=== PATIENT | female | born 1980 ===

== ENCOUNTER 2017-10-29 12:14 | Inpatient (IN) | payer MEDICAID, OTHER ==
[2017-10-29 13:22] LABS: BASO % 0.3 % (0.0-2.0); EOS % 0.1 % (0.0-4.0); HEMOGLOBIN 9.4 g/dL (11.0-16.0); LYMPH # 0.7 K/uL (1.0-4.3); LYMPH % 9.2 % (20.0-40.0); MEAN CELL VOLUME 74.8 fL (81.0-99.0); MEAN CORPUSCULAR HEMOGLOBIN 24.8 pg (27.0-31.0); MEAN CORPUSCULAR HGB CONC 33.1 g/dL (33.0-37.0); MONO # 0.4 K/uL (0.0-0.8); MONO % 4.9 % (0.0-10.0); NEUT # 6.9 K/uL (1.8-7.0); NEUT % 85.5 % (50.0-75.0); PLATELET COUNT 194 K/uL (130-400); RED CELL DISTRIBUTION WIDTH 18.1 % (11.5-14.5); WHITE BLOOD COUNT 8.1 K/uL (4.8-10.8)
[2017-10-29] MEDS ORDERED: Iodixanol 320 MG/ML 100 ML BOTTLE IV ONE (13:24)
[2017-10-29 13:28] LABS: ALB/GLOB RATIO 1.4 (1.0-2.1); ALT/SGPT 33 U/L (9-52); AST/SGOT 23 U/L (14-36); BLOOD UREA NITROGEN 10 mg/dL (7-17); GFR NON-AFRICAN AMERICAN > 60
[2017-10-29 13:28] LABS: VENOUS BLOOD GAS BASE EXCESS -3.9 mmol/L (0.0-2.0); VENOUS BLOOD GAS PCO2 29 mmHg (40-60); VENOUS BLOOD GAS PO2 23 mm/Hg (30-55); VENOUS BLOOD PH 7.43 (7.32-7.43)
[2017-10-29] MEDS ORDERED: cefTRIAXone IV 1 gm in Dextros 50 ML IV STA (13:37)
[2017-10-29] MEDS ORDERED: Azithromycin 500 MG in Sodium Chloride 0.9% 250 ML IVPB STA (13:38)
[2017-10-29 13:44] LABS: SQUAMOUS EPITHIAL < 1 /hpf (0-5); URINE BILIRUBIN NEGATIVE (NEGATIVE); URINE BLOOD 1+ (NEGATIVE); URINE CLARITY Hazy (Clear); URINE COLOR Amber (YELLOW); URINE GLUCOSE (UA) NORMAL (Normal); URINE LEUKOCYTE ESTERASE NEG Leu/uL (Negative); URINE PROTEIN 2+ mg/dL (NEGATIVE)
[2017-10-29 13:45] LABS: HCG,QUALITATIVE URINE NEGATIVE (NEGATIVE)
[2017-10-29] MEDS ORDERED: cefTRIAXone 1 gm 1 GM/100 ML BAG IVPB ONE (13:45)
[2017-10-29] MEDS ORDERED: Azithromycin 500mg/250ML NS 500 MG/250 ML BAG IVPB ONE (13:45)
[2017-10-29 13:46] LABS: BANDS 4 % (0-2); LYMPHOCYTE 9 % (20-40); MONOCYTE 5 % (0-10); NEUTROPHIL 82 % (50-75); PLATELET ESTIMATE NORMAL (NORMAL); TOTAL CELLS COUNTED 100
[2017-10-29 13:47] LABS: ANISOCYTOSIS MODERATE; HYPOCHROMIC SLIGHT; POLYCHROMIC SLIGHT
[2017-10-29 13:48] LABS: MICROCYTOSIS SLIGHT; TOXIC GRANULATION PRESENT
--- NOTE | 2017-10-29 14:03 | C.PDOC ---
History Of Present Illness 36 year old female was sent to ED by PMD for further evaluation. Patient states she had an outpatient chest x-ray and was told she may have a pneumonia vs possible tuberculosis. Patient reports intermittent cough for the last 4 months, and a productive cough with blood tinge for the past three days. Patient also reports having shortness of breath, fever, chills for same amount of time. She is visiting from [facility] and arrived 4 months ago. Patient denies chest pain, nausea, vomiting, diarrhea, palpitations, rash, abdominal pain. Time Seen by Provider: 10/29/17 12:30 Chief Complaint (Nursing): Shortness Of Breath History Per: Patient History/Exam Limitations: no limitations Onset/Duration Of Symptoms: Days Current Symptoms Are (Timing): Still Present Exacerbating Factor(s): Coughing Current Respiratory Medications: See Home Med List Severity: Moderate Past Medical History Reviewed: Historical Data, Nursing Documentation, Vital Signs Vital Signs: Last Vital Signs Temp 97.6 F 11/08/17 15:00 Pulse 86 11/08/17 15:00 Resp 20 11/08/17 15:00 BP 100/64 11/08/17 15:00 Pulse Ox 100 11/08/17 17:56 - Medical History PMH: No Chronic Diseases Other Surgeries: plastic surgery/fillers Family History: States: No Known Family Hx - Social History Hx Alcohol Use: No Hx Substance Use: No Review Of Systems Constitutional: Positive for: Fever, Chills Cardiovascular: Negative for: Chest Pain Respiratory: Positive for: Cough (Productive of blood tinge sputum for the past three days. Intermittent cough for the past 4 months. ), Shortness of Breath Gastrointestinal: Negative for: Nausea, Vomiting, Diarrhea Skin: Negative for: Rash Neurological: Negative for: Weakness, Numbness Physical Exam - Physical Exam Appears: Well, Non-toxic, No Acute Distress, Other (speaking in full sentences ) Skin: Warm, Dry Head: Normacephalic Eye(s): bilateral: Normal Inspection Oral Mucosa: Moist Throat: Normal, No Erythema, No Exudate Neck: Supple Cardiovascular: Rhythm Regular Respiratory: Decreased Breath Sounds (RUL), No Accessory Muscle Use, No Rales, Rhonchi (Right upper lobe.), No Wheezing, Other (Coughing intermittently) Gastrointestinal/Abdominal: Normal Exam, Bowel Sounds, Soft, No Tenderness Extremity: Normal ROM, No Pedal Edema, No Calf Tenderness Neurological/Psych: Oriented x3 Gait: Steady ED Course And Treatment - Laboratory Results Result Diagrams: 11/08/17 07:47 11/08/17 07:47 ECG: Interpreted By Me, Viewed By Me (sinus tachycardia 114 bpm, normal axis, no acute ST/T wave changes) ECG Interpretation: Abnormal O2 Sat by Pulse Oximetry: 100 (RA) Pulse Ox Interpretation: Normal - Other Rad CT-chest X-Ray: Interpreted by Me, Viewed By Me Interpretation: FINDINGS: LUNGS: There is a triangular area of consolidation with air bronchogram in the right apex and predominantly involving the posterior segment of the right upper lobe. There are no endobronchial lesions. The remaining right lung and the left lung are predominantly clear. There is mild subsegmental atelectasis in both lower lobes. MEDIASTINUM: The thoracic aorta is normal in caliber. No aneurysm or dissection. Normal sized heart. Main pulmonary artery unremarkable. No vascular congestion. There are enlarged right paratracheal lymph nodes, likely reactive in etiology.. PLEURA: No pleural fluid. No pneumothorax. BONES: No fracture. No destructive lesion. UPPER ABDOMEN: There is mild splenium. OTHER FINDINGS: None. IMPRESSION: Findings are most compatible with right upper lobe pneumonia predominantly involving the apex and posterior segment of the right upper lobe. Follow-up after medical management is recommended to ensure complete resolution. Mild splenomegaly. Chest x-ray X-Ray: Interpreted by Me, Viewed By Me Interpretation: FINDINGS: LUNGS: There is triangular consolidation with air bronchogram in the right upper lobe. The left lung is clear. The right lower lobe is clear. PLEURA: No pneumothorax or pleural fluid seen. CARDIOVASCULAR: Normal. OSSEOUS STRUCTURES: No significant abnormalities. VISUALIZED UPPER ABDOMEN: Normal. OTHER FINDINGS: None. IMPRESSION: Findings are most compatible with right upper lobe pneumonia. Follow-up after medical management is recommended to ensure complete resolution. Progress Note: Blood work, CXR, CTA chest ordered and reviewed. Patient given PO tylenol and Tessalon, IV fluids,and IV rocephin + azithromycin for pneumonia. - Physician Consult Information Physician Contacted: Krystyna Gaona Outcome Of Conversation: Discussed patient with PMD, agrees with admission for right lobar pneumonia, hemoptypsis, dyspnea, fever. Disposition - Disposition Disposition: HOSPITALIZED Disposition Time: 14:42 Condition: STABLE - Clinical Impression Clinical Impression: Lobar pneumonia, Dyspnea, Fever, Hemoptysis - Scribe Statement The provider has reviewed the documentation as recorded by the Mark Steele Ebenezer Provider Attestation: All medical record entries made by the Mark were at my direction and personally dictated by me. I have reviewed the chart and agree that the record accurately reflects my personal performance of the history, physical exam, medical decision making, and the department course for this patient. I have also personally directed, reviewed, and agree with the discharge instructions and disposition. Decision To Admit - Pt Status Changed To: Hospital Disposition Of: Inpatient - Admit Certification Admit to Inpatient:: After my assessment, the patient will require hospitalization for at least two midnights. This is because of the severity of symptoms shown, intensity of services needed, and/or the medical risk in this patient being treated as an outpatient. - InPatient: Physician Admission Certification: I certify that this patient requires 2 or more midnights of care for the following reason:: see notes - . Bed Request Type: Telemetry Admitting Physician: Krystyna Gaona Patient Diagnosis: Lobar pneumonia, Dyspnea, Fever, Hemoptysis
[2017-10-29] MEDS ORDERED: Sodium Chloride 0.9% 1,000 ML IV ONE (14:27)
[2017-10-29] MEDS ORDERED: Sodium Chloride 0.9% 1,000 ML ONE (14:34)
--- NOTE | 2017-10-29 14:34 | CT ---
Date of service: 10/29/2017 PROCEDURE: CT Chest with contrast HISTORY: INFILTRATE VS CAVITY/TB COMPARISON: Plain radiographs from 10/29/2017. TECHNIQUE: Contiguous axial images were obtained through the chest with intravenous contrast enhancement. Sagittal and coronal reconstructions were performed. IV contrast: 100 mL Visipaque Radiation dose (DLP): 170.15 mGy-cm. This CT exam was performed using one or more of the following dose reduction techniques: Automated exposure control, adjustment of the mA and/or kV according to patient size, and/or use of iterative reconstruction technique. FINDINGS: LUNGS: There is a triangular area of consolidation with air bronchogram in the right apex and predominantly involving the posterior segment of the right upper lobe. There are no endobronchial lesions. The remaining right lung and the left lung are predominantly clear. There is mild subsegmental atelectasis in both lower lobes. MEDIASTINUM: The thoracic aorta is normal in caliber. No aneurysm or dissection. Normal sized heart. Main pulmonary artery unremarkable. No vascular congestion. There are enlarged right paratracheal lymph nodes, likely reactive in etiology.. PLEURA: No pleural fluid. No pneumothorax. BONES: No fracture. No destructive lesion. UPPER ABDOMEN: There is mild splenium. OTHER FINDINGS: None. IMPRESSION: Findings are most compatible with right upper lobe pneumonia predominantly involving the apex and posterior segment of the right upper lobe. Follow-up after medical management is recommended to ensure complete resolution. Mild splenomegaly.
--- NOTE | 2017-10-29 14:59 | RAD ---
Date of service: 10/29/2017 PROCEDURE: CHEST RADIOGRAPH, 1 VIEW HISTORY: FEVER, SOB, COUGH COMPARISON: None available. FINDINGS: LUNGS: There is triangular consolidation with air bronchogram in the right upper lobe. The left lung is clear. The right lower lobe is clear. PLEURA: No pneumothorax or pleural fluid seen. CARDIOVASCULAR: Normal. OSSEOUS STRUCTURES: No significant abnormalities. VISUALIZED UPPER ABDOMEN: Normal. OTHER FINDINGS: None. IMPRESSION: Findings are most compatible with right upper lobe pneumonia. Follow-up after medical management is recommended to ensure complete resolution.
[2017-10-29] MEDS ORDERED: Vancomycin 1 GM 1 GM/250 ML BAG IVPB ONE (15:32)
[2017-10-29] MEDS: Vancomycin 1 gm/NS 200 ml 1 GM/200 ML BAG IVPB SCH ×2 (15:35→16:05)
[2017-10-29] MEDS: Sodium Chloride 0.9% 1,000 ML IV SCH (15:35)
[2017-10-29] MEDS: Albuterol-Ipratrop 3 mg / 0.5 (3 ml) UD INH SCH (22:35)
[2017-10-30] MEDS: Albuterol-Ipratrop 3 mg / 0.5 (3 ml) UD INH SCH ×4 (01:17→19:56)
[2017-10-30] MEDS: Vancomycin 1 gm/NS 200 ml 1 GM/200 ML BAG IVPB SCH ×2 (03:56→15:46)
[2017-10-30] MEDS: Sodium Chloride 0.9% 1,000 ML IV SCH ×3 (03:57→20:28)
[2017-10-30] MEDS ORDERED: guaiFENesin DM 200 mg-20 mg/10 ml UD PO ONE (06:11)
[2017-10-30] MEDS: Promethazine/Cod 6.25mg-10mg/5ml Syr UD PO PRN ×2 (11:34→18:22)
--- NOTE | 2017-10-30 12:48 | RAD ---
Date of service: 10/30/2017 HISTORY: cap COMPARISON: 10/29/2017 FINDINGS: LUNGS: The lungs are well inflated. There is redemonstration of triangular consolidation in the right upper lobe limited by the fissure. There is also air bronchogram. PLEURA: No significant pleural effusion identified, no pneumothorax apparent. CARDIOVASCULAR: Normal. OSSEOUS STRUCTURES: No significant abnormalities. VISUALIZED UPPER ABDOMEN: Normal. OTHER FINDINGS: None. IMPRESSION: No change in right upper lobe pneumonia.
[2017-10-30] MEDS: Piperacillin/Tazobact 3.375 GM in Sodium Chloride 100 ML IVPB SCH ×3 (13:43→23:17)
[2017-10-30 20:16] LABS: ALB/GLOB RATIO 1.2 (1.0-2.1); ALBUMIN 3.2 g/dL (3.5-5.0); ALT/SGPT 28 U/L (9-52); AST/SGOT 18 U/L (14-36); BLOOD UREA NITROGEN 10 mg/dL (7-17); CALCIUM 8.4 mg/dl (8.6-10.4); GFR NON-AFRICAN AMERICAN > 60
[2017-10-30 20:36] LABS: BASO % 0.3 % (0.0-2.0); EOS # 0.1 K/uL (0.0-0.7); EOS % 2.2 % (0.0-4.0); HEMOGLOBIN 8.6 g/dL (11.0-16.0); LYMPH # 0.8 K/uL (1.0-4.3); MEAN CELL VOLUME 75.4 fL (81.0-99.0); MEAN CORPUSCULAR HEMOGLOBIN 24.1 pg (27.0-31.0); MEAN CORPUSCULAR HGB CONC 31.9 g/dL (33.0-37.0); MEAN PLATELET VOLUME 6.7 fL (7.2-11.7); MONO # 0.3 K/uL (0.0-0.8); MONO % 6.2 % (0.0-10.0); NEUT # 3.7 K/uL (1.8-7.0); NEUT % 74.3 % (50.0-75.0); RBC 3.59 Mil/uL (3.80-5.20); RED CELL DISTRIBUTION WIDTH 18.3 % (11.5-14.5); WHITE BLOOD COUNT 4.9 K/uL (4.8-10.8)
[2017-10-30] MEDS ORDERED: Oxycodone/Acetaminophen 5/325 mg Tab PO ONE (23:00)
[2017-10-31] MEDS: Sodium Chloride 0.9% 1,000 ML IV SCH ×2 (00:01→06:29)
[2017-10-31] MEDS: Albuterol-Ipratrop 3 mg / 0.5 (3 ml) UD INH SCH ×4 (01:45→19:37)
[2017-10-31] MEDS: Promethazine/Cod 6.25mg-10mg/5ml Syr UD PO PRN ×4 (03:07→22:55)
[2017-10-31] MEDS: Vancomycin 1 gm/NS 200 ml 1 GM/200 ML BAG IVPB SCH ×2 (03:08→16:45)
[2017-10-31] MEDS: Piperacillin/Tazobact 3.375 GM in Sodium Chloride 100 ML IVPB SCH ×4 (05:06→23:53)
[2017-10-31] MEDS ORDERED: Oxycodone/Acetaminophen 5/325 mg Tab PO ONE (10:45)
--- NOTE | 2017-10-31 11:05 | CARD ---
APPROVED REPORT Date of service: 10/29/2017 EKG Measurement Heart [id number] <Conclusion> Sinus tachycardia Otherwise normal ECG
[2017-10-31 14:11] LABS: BASO % 0.7 % (0.0-2.0); EOS # 0.2 K/uL (0.0-0.7); EOS % 4.7 % (0.0-4.0); HEMOGLOBIN 9.4 g/dL (11.0-16.0); LYMPH # 0.8 K/uL (1.0-4.3); LYMPH % 23.1 % (20.0-40.0); MEAN CELL VOLUME 74.4 fL (81.0-99.0); MEAN CORPUSCULAR HEMOGLOBIN 24.4 pg (27.0-31.0); MEAN CORPUSCULAR HGB CONC 32.8 g/dL (33.0-37.0); MEAN PLATELET VOLUME 6.9 fL (7.2-11.7); MONO # 0.2 K/uL (0.0-0.8); NEUT # 2.1 K/uL (1.8-7.0); NEUT % 64.5 % (50.0-75.0); RBC 3.85 Mil/uL (3.80-5.20); RED CELL DISTRIBUTION WIDTH 17.9 % (11.5-14.5); WHITE BLOOD COUNT 3.3 K/uL (4.8-10.8)
[2017-10-31 14:42] LABS: IRON 23 ug/dL (37-170)
[2017-10-31 14:46] LABS: ALB/GLOB RATIO 1.2 (1.0-2.1); ALBUMIN 3.3 g/dL (3.5-5.0); ALT/SGPT 44 U/L (9-52); AST/SGOT 35 U/L (14-36); BLOOD UREA NITROGEN 7 mg/dL (7-17); CALCIUM 8.6 mg/dl (8.6-10.4); GFR NON-AFRICAN AMERICAN > 60
[2017-10-31 14:52] LABS: % IRON SATURATION 8 (20-55); TOTAL IRON BINDING CAPACITY 284 ug/dL (250-450)
[2017-10-31] MEDS ORDERED: Potassium Chloride 20 mEq ER Tab PO ONE (16:00)
[2017-10-31] MEDS: Oxycodone/Acetaminophen 5/325 mg Tab PO PRN (21:20)
[2017-11-01] MEDS: Albuterol-Ipratrop 3 mg / 0.5 (3 ml) UD INH SCH ×4 (01:19→21:02)
[2017-11-01] MEDS: Vancomycin 1 gm/NS 200 ml 1 GM/200 ML BAG IVPB SCH ×2 (05:30→16:18)
[2017-11-01] MEDS: Piperacillin/Tazobact 3.375 GM in Sodium Chloride 100 ML IVPB SCH ×4 (06:05→23:46)
[2017-11-01] MEDS: Promethazine/Cod 6.25mg-10mg/5ml Syr UD PO PRN ×2 (09:28→21:18)
--- NOTE | 2017-11-01 09:47 | RAD ---
Date of service: 11/01/2017 HISTORY: Pneumonia. COMPARISON: No prior. TECHNIQUE: Chest PA and lateral FINDINGS: LUNGS: Stable right upper lobe infiltrate with volume loss. PLEURA: No significant pleural effusion identified. No pneumothorax apparent. CARDIOVASCULAR: Normal. OSSEOUS STRUCTURES: No significant abnormalities. VISUALIZED UPPER ABDOMEN: Normal. OTHER FINDINGS: None. IMPRESSION: Stable right upper lobe pneumonia.
--- NOTE | 2017-11-01 12:34 | CP.PCM.CON ---
History of Present Illness - History of Present Illness History of Present Illness: 36 year old female was sent to ED by PCP for further evaluation. Patient states she had an outpatient chest x-ray and was told she may have a pneumonia, or possible tuberculosis. Patient reports intermittent cough for the last 4 months, and a productive cough with blood tinge for the past three days. Patient also reports having tesha rtness of breath, fever, and chills. Patient states she is visiting from [facility] and arrived 4 months ago. Denies chest pain, nausea, vomiting, diarrhea, numbness, weakness. no recent travel came from [facility] in June 2017 Review of Systems - Review of Systems Systems not reviewed;Unavailable: Language Barrier All systems: reviewed and no additional remarkable complaints except - Constitutional Constitutional: As Per HPI - EENT Eyes: absent: As Per HPI, Blind Spots, Blurred Vision, Change in Vision, Decreased Night Vision, Diplopia, Discharge, Dry Eye, Exophthalmos, Floaters, Irritation, Itchy Eyes, Loss of Peripheral Vision, Pain, Photophobia, Requires Corrective Lenses, Sees Flashes, Spots in Vision, Tunnel Vision, Other Visual Disturbances, Loss of Vision, Other Ears: absent: As Per HPI, Decreased Hearing, Ear Discharge, Ear Pain, Tinnitus, Abnormal Hearing, Disequilibrium, Dizziness, Other Nose/Mouth/Throat: absent: As Per HPI, Epistaxis, Nasal Congestion, Nasal Discharge, Nasal Obstruction, Nasal Trauma, Nose Pain, Post Nasal Drip, Sinus Pain, Sinus Pressure, Bleeding Gums, Change in Voice, Dental Pain, Dry Mouth, Dysphagia, Halitosis, Hoarsness, Lip Swelling, Mouth Lesions, Mouth Pain, Odynophagia, Sore Throat, Throat Swelling, Tongue Swelling, Facial Pain, Neck Pain, Neck Mass, Other - Breasts Breasts: absent: As Per HPI, Change in Shape, Mass, Pain, Nipple Discharge, Nipple Inversion, Skin Changes, Swelling, Other - Cardiovascular Cardiovascular: absent: As Per HPI, Acrocyanosis, Chest Pain, Chest Pain at Rest, Chest Pain with Activity, Claudication, Diaphoresis, Dyspnea, Dyspnea on Exertion, Edema, Irregular Heart Rhythm, Pain Radiating to Arm/Neck/Jaw, Leg Edema, Leg Ulcers, Lightheadedness, Orthopnea, Palpitations, Paroxysmal Nocturnal Dyspnea, Pedal Edema, Radiating Pain, Rapid Heart Rate, Slow Heart Rate, Syncope, Other - Respiratory Respiratory: As Per HPI, Cough, Hemoptysis - Gastrointestinal Gastrointestinal: absent: As Per HPI, Abdominal Pain, Belching, Bloating, Change in Bowel Habits, Change in Stool Character, Coffee Ground Emesis, Constipation, Cramping, Diarrhea, Dyspepsia, Dysphagia, Early Satiety, Excessive Flatus, Fecal Incontinence, Heartburn, Hematemesis, Hematochezia, Loose Stools, Melena, Nausea, Odynophagia, Temesmus, Vomiting, Other - Genitourinary Genitourinary: absent: As Per HPI, Change in Urinary Stream, Difficulty Urinating, Dysuria, Flank Pain, Hematuria, Pyuria, Nocturia, Urinary Incontinence, Urinary Frequency, Urinary Hesitance, Urinary Urgency, Voiding Freq/Small Amts, Freq UTI, Hx Renal/Bladder Calculi, Hx /Renal Surgery, Bladder Distension, Other - Reproductive: Female Reproductive:Female: absent: As Per HPI, Amenorrhea, Amenorrhea/ Control, Currently Menstual, Cycle <21 Days, Cycle >35 Days, Cycle Variable, Menses 1-7 Days, Menses >/= 8 Days, Menses Variable, Cycle > 4 Weeks Between, No Menses for 6 Months, Heavy Menses, Light Menses, Normal Menses, Spotting Between Cycles, S/P Hysterectomy, Menopausal, Post Menopausal, Premenarche, Abnormal Vaginal Bleeding, Dysmenorrhea, Dyspareunia, Genital Lesions, Genital Pruritis, Pelvic Pain, Prolapse Symptoms, Sexual Dysfunction, Vaginal Discharge, Vaginal Dryness, Vaginal Odor, Vaginal Pruritis, Other - Menstruation Menstruation: absent: As Per HPI, Amenorrhea, Amenorrhea/ Control, Currently Menstual, Cycle <21 Days, Cycle >35 Days, Cycle Variable, Menses 1-7 Days, Menses >/= 8 Days, Menses Variable, Cycle > 4 Weeks Between, No Menses for 6 Months, Heavy Menses, Light Menses, Normal Menses, Spotting Between Cycles, S/P Hysterectomy, Menopausal, Post Menopausal, Premenarche, Abnormal Vaginal Bleeding, Dysmenorrhea, Other - Musculoskeletal Musculoskeletal: absent: As Per HPI, Abnormal Gait, Arthralgias, Atrophy, Back Pain, Deformity, Joint Swelling, Limited Range of Motion, Loss of Height, Muscle Cramps, Muscle Weakness, Myalgias, Neck Pain, Numbness, Radiating Pain into Limb, Stiffness, Tingling, Other - Integumentary Integumentary: absent: As Per HPI, Acne, Alopecia, Bleeding Lesions, Change in Hair, Change in Nails, Change in Pigmentation, Changing Lesions, Dry Skin, Erythema, Furuncle, Hirsutism, Lesions, New Lesions, Non-Healing Lesions, Photosensitivity, Pruritus, Rash, Skin Pain, Skin Ulcer, Sores, Striae, Swelling, Unusual Bruising, Wounds, Jaundice, Other - Neurological Neurological: absent: As Per HPI, Abnormal Gait, Abnormal Hearing, Abnormal Movements, Abnormal Speech, Behavioral Changes, Burning Sensations, Confusion, Convulsions, Disequilibrium, Dizziness, Numbness, Focal Weakness, Frequent Fal ls, Headaches, Lack of Coordination, Loss of Vision, Memory Loss, Paresthesias, Radicular Pain, Restless Legs, Sensory Deficit, Syncope, Tingling, Tremor, Vertigo, Weakness, Other Visual Disturbances, Other - Psychiatric Psychiatric: absent: As Per HPI, Abnormal Sleep Pattern, Anhedonia, Anxiety, Auditory Hallucinations, Behavioral Changes, Change in Appetite, Change in Libido, Confusion, Depression, Difficulty Concentrating, Hallucinations, Homicidal Ideation, Hopelessness, Irritability, Memory Loss, Mood Swings, Panic Attacks, Paranoia, Suicidal Ideation, Visual Hallucinations, Tactile Hallucinations, Other - Endocrine Endocrine: absent: As Per HPI, Change in Body Appearance, Change in Libido, Cold Intolorance, Deepening of Voice, Excessive Sweating, Fatigue, Flushing, Heat Intolorance, Increase in Ring/Shoe/Hat Size, Palpitations, Polydipsia, Polyphagia, Polyuria, Other - Hematologic/Lymphatic Hematologic: absent: As Per HPI, Easy Bleeding, Easy Bruising, Lymphadenopathy, Other Past Patient History - Past Medical History & Family History Past Medical History?: Yes - Past Social History Smoking Status: Never Smoked - CARDIAC Hx Cardiac Disorders: No - PULMONARY Hx Respiratory Disorders: Yes Hx Asthma: Yes - NEUROLOGICAL Hx Neurological Disorder: No - HEENT Hx HEENT Problems: No - RENAL Hx Chronic Kidney Disease: No - ENDOCRINE/METABOLIC Hx Endocrine Disorders: No - HEMATOLOGICAL/ONCOLOGICAL Hx Blood Disorders: No - INTEGUMENTARY Hx Dermatological Problems: No - MUSCULOSKELETAL/RHEUMATOLOGICAL Hx Musculoskeletal Disorders: No Hx Falls: No - GASTROINTESTINAL Hx Gastrointestinal Disorders: No - GENITOURINARY/GYNECOLOGICAL Hx Genitourinary Disorders: No - PSYCHIATRIC Hx Psychophysiologic Disorder: No Hx Substance Use: No - SURGICAL HISTORY Hx Surgeries: No - ANESTHESIA Hx Anesthesia: No Hx Anesthesia Reactions: No Hx Malignant Hyperthermia: No Has any member of the family had a problem w/ anesthesia?: No Meds Allergies/Adverse Reactions: Allergies Allergy/AdvReac Type Severity Reaction Status Date / Time No Known Allergies Allergy Verified 10/29/17 13:18 - Medications Medications: Current Medications Albuterol/Ipratropium (Duoneb 3 Mg/0.5 Mg (3 Ml) Ud) 3 ml INH RQ6 LORRI Last Admin: 11/01/17 01:19 Dose: 3 ml Famotidine (Pepcid) 20 mg PO DAILY LORRI Last Admin: 11/01/17 09:36 Dose: 20 mg Gabapentin (Neurontin) 100 mg PO BID LORRI Last Admin: 11/01/17 09:31 Dose: 100 mg Vancomycin/Sodium Chloride (Vancomycin 1 Gm/Ns 200 Ml) 1 gm in 200 mls @ 13 3.333 mls/hr IVPB Q12H LORRI; Protocol Stop: 11/03/17 16:01 Last Admin: 11/01/17 05:30 Dose: 133.333 mls/hr Piperacillin Sod/Tazobactam (Sod 3.375 gm/ Sodium Chloride) 100 mls @ 200 mls/hr IVPB Q6H LORRI; Protocol Last Admin: 11/01/17 06:05 Dose: 200 mls/hr Oxycodone/Acetaminophen (Percocet 5/325 Mg Tab) 1 tab PO Q6H PRN PRN Reason: Pain, moderate (4-7) Stop: 11/03/17 18:21 Last Admin: 10/31/17 21:20 Dose: 1 tab Promethazine HCl/Codeine (Phenergan/Codeine Oral Syrup) 5 ml PO Q6H PRN PRN Reason: Cough Last Admin: 11/01/17 09:28 Dose: 5 ml Physical Exam - Constitutional Appears: Non-toxic, No Acute Distress, Chronically Ill - Head Exam Head Exam: NORMOCEPHALIC - Eye Exam Eye Exam: PERRL. absent: Scleral icterus - ENT Exam ENT Exam: Mucous Membranes Dry, Normal External Ear Exam - Neck Exam Neck exam: Negative for: Lymphadenopathy - Respiratory Exam Respiratory Exam: Decreased Breath Sounds, Clear to Auscultation Bilateral - Cardiovascular Exam Cardiovascular Exam: REGULAR RHYTHM, +S1, +S2 - GI/Abdominal Exam GI & Abdominal Exam: Diminished Bowel Sounds, Soft. absent: Tenderness - Rectal Exam Rectal Exam: Deferred - Exam Exam: NORMAL INSPECTION - Extremities Exam Extremities exam: Positive for: pedal pulses present. Negative for: calf tenderness, pedal edema - Back Exam Back exam: absent: CVA tenderness (L), CVA tenderness (R) - Neurological Exam Neurological exam: Alert, CN II-XII Intact, Oriented x3, Reflexes Normal - Psychiatric Exam Psychiatric exam: Normal Mood - Skin Skin Exam: Dry Results - Vital Signs Recent Vital Signs: Last Vital Signs Temp 98.6 F 11/01/17 07:00 Pulse 85 11/01/17 07:00 Resp 18 11/01/17 07:00 BP 101/61 11/01/17 07:00 Pulse Ox 100 11/01/17 07:00 - Labs Result Diagrams: 10/31/17 14:06 10/31/17 14:06 Labs: Laboratory Results - last 24 hr 10/31/17 10/31/17 10/31/17 14:06 14:06 14:06 WBC 3.3 L RBC 3.85 Hgb 9.4 L Hct 28.7 L MCV 74.4 L MCH 24.4 L MCHC 32.8 L RDW 17.9 H Plt Count 217 MPV 6.9 L Neut % (Auto) 64.5 Lymph % (Auto) 23.1 Lane % (Auto) 7.0 Eos % (Auto) 4.7 H Baso % (Auto) 0.7 Neut # (Auto) 2.1 Lymph # (Auto) 0.[address] # (Auto) 0.2 Eos # (Auto) 0.2 Baso # (Auto) 0.0 Sodium 142 Potassium 3.5 L Chloride 109 H Carbon Dioxide 18 L Anion Gap 19 BUN 7 Creatinine 0.6 L Est GFR ( Amer) > 60 Est GFR (Non-Af Amer) > 60 Random Glucose 111 H Calcium 8.6 Phosphorus 3.3 Magnesium 1.9 Iron TIBC % Saturation Ferritin 323.0 Total Bilirubin 0.5 AST 35 ALT 44 Alkaline Phosphatase 167 H Total Protein 6.2 L Albumin 3.3 L Globulin 2.9 Albumin/Globulin Ratio 1.2 HIV 1&2 Antibody Screen Negative 10/31/17 14:29 WBC RBC Hgb Hct MCV MCH MCHC RDW Plt Count MPV Neut % (Auto) Lymph % (Auto) Lane % (Auto) Eos % (Auto) Baso % (Auto) Neut # (Auto) Lymph # (Auto) Lane # (Auto) Eos # (Auto) Baso # (Auto) Sodium Potassium Chloride Carbon Dioxide Anion Gap BUN Creatinine Est GFR ( Amer) Est GFR (Non-Af Amer) Random Glucose Calcium Phosphorus Magnesium Iron 23 L TIBC 284 % Saturation 8 L Ferritin Total Bilirubin AST ALT Alkaline Phosphatase Total Protein Albumin Globulin Albumin/Globulin Ratio HIV 1&2 Antibody Screen Assessment & Plan (1) Pneumonia Status: Acute - Assessment and Plan (Free Text) Plan: RUL pneumonia with bacteremia- r/o endocarditis, TB appears less likely agree with isolation IV antibiotics
--- NOTE | 2017-11-01 12:53 | NM ---
Date of service: 10/31/2017 PROCEDURE: Ceretec labeled white blood cell study HISTORY: sepsis COMPARISON: November 01, 2017. Two-view chest documenting right upper lobe infiltrate TECHNIQUE: 15.1 mCi technetium 99 M Ceretec labeled white blood cells administered intravenously. Imaging performed per institutional protocol at 2 and 24 hr. FINDINGS: Is expected uptake in the liver and spleen. Qualitatively, the spleen appears enlarged. No abnormal focal accumulation of radionuclide. IMPRESSION: Negative Ceretec labeled white blood cell study.
[2017-11-01] MEDS: Oxycodone/Acetaminophen 5/325 mg Tab PO PRN ×2 (16:17→21:22)
[2017-11-01 20:47] LABS: IMMUNOGLOBULIN G 403.5 mg/dL (700.0-1600.0); IMMUNOGLOBULIN M 72.4 mg/dL (40.0-230.0)
[2017-11-01 20:50] LABS: IMMUNOGLOBULIN A < 40.0 mg/dL (70.0-400.0)
--- NOTE | 2017-11-01 22:05 | CP.PCM.HP ---
History of Present Illness - History of Present Illness History of Present Illness: Chief complaint: Worsening cough HPI: 36-year-old female with a history of recurrent ear infection, and a chronic cough came to the office a week ago, at the time patient was complaining of cough. Patient did not have any fever in the beginning, but she was having wheezing upon examination in my office on 09/27/2017. During that examination I advised the patient for Keflex, Ciprodex, and also inhaled corticosteroids. But over the one week, she did not have any improvement. She came to my office. And I advised her to have x-ray of the chest, which was showing worsening infiltrative changes in the right upper lung, and I advised the patient to go to the emergency room immediately. In the ER patient having worsening cough, cough associated with a thick yellow mucus, also having some blood in the mucus noted. Patient was also having fever and chills. She was having poor appetite, and also some weight loss noted. She did not have any headache. No nausea noted. No vomiting noted. No diarrhea. No skin rash Past medical history none except ear infection Surgical history aesthetic surgery, both gluteal area fillers Family history father mother healthy, siblings 2 brothers Social history: Occasional alcohol denies smoking drinks coffee no exercise current medications none Review of system: doing well, no sinusitis, no headache.Left ear discharge and pain noted. Complaining of minimal soreness of throat. Cough and wheezing noted, chest tightness occasionally noted.Denies any shortness of breath. All exertional dyspnea exertional shortness of breath On examination: Vital signs stable. Patient has a vaccine that idea Left ear discharge noted, pus discharge noted. Lungs bilateral wheezing noted.Expiratory wheezing noted Regular heart sound.No eczema Patient had x-ray of the chest, also CAT scan of the chest showing evidence of right upper lung infiltration, with the air bronchogram. Mild hilar debora enlargement noted Assessment: Patient is a 36-year-old female with a history of recurrent ear infection, now admitted with the severe worsening cough, fever, chills. Evidence of acute pneumonia, most likely community-acquired. Right upper lung pneumonia, underlying tuberculosis cannot be ruled out Also possible sepsis. I spoke to the patient as well as patient's family. She needs intravenous antibiotic, to cover possibly of gram-positive cocci, will add vancomycin, also Zosyn. DVT and GI prophylaxis. Evaluation for tuberculosis. Airborne isolation. Family and the patient understands. Further workup as needed. And will follow-up the patient Present on Admission - Present on Admission Any Indicators Present on Admission: No History of DVT/PE: No History of Uncontrolled Diabetes: No Urinary Catheter: No Decubitus Ulcer Present: No Past Patient History - Past Medical History & Family History Past Medical History?: Yes - Past Social History Smoking Status: Never Smoked - CARDIAC Hx Cardiac Disorders: No - PULMONARY Hx Respiratory Disorders: Yes Hx Asthma: Yes - NEUROLOGICAL Hx Neurological Disorder: No - HEENT Hx HEENT Problems: No - RENAL Hx Chronic Kidney Disease: No - ENDOCRINE/METABOLIC Hx Endocrine Disorders: No - HEMATOLOGICAL/ONCOLOGICAL Hx Blood Disorders: No - INTEGUMENTARY Hx Dermatological Problems: No - MUSCULOSKELETAL/RHEUMATOLOGICAL Hx Musculoskeletal Disorders: No Hx Falls: No - GASTROINTESTINAL Hx Gastrointestinal Disorders: No - GENITOURINARY/GYNECOLOGICAL Hx Genitourinary Disorders: No - PSYCHIATRIC Hx Psychophysiologic Disorder: No Hx Substance Use: No - SURGICAL HISTORY Hx Surgeries: No - ANESTHESIA Hx Anesthesia: No Hx Anesthesia Reactions: No Hx Malignant Hyperthermia: No Has any member of the family had a problem w/ anesthesia?: No Meds Allergies/Adverse Reactions: Allergies Allergy/AdvReac Type Severity Reaction Status Date / Time No Known Allergies Allergy Verified 10/29/17 13:18 Results - Vital Signs Recent Vital Signs: Last Vital Signs Temp 98.3 F 11/01/17 17:35 Pulse 96 H 11/01/17 17:35 Resp 20 11/01/17 17:35 BP 98/58 L 11/01/17 17:35 Pulse Ox 98 11/01/17 17:35 - Labs Result Diagrams: 10/31/17 14:06 10/31/17 14:06 Labs: Laboratory Results - last 24 hr 10/29/17 11/01/17 11/01/17 15:15 20:23 20:23 ESR 88 H C-React Prot High Sens Stool Occult Blood Negative IgG IgA IgM Mycoplasma pneumon IgG <=0.90 Mycoplasma pneumon IgM 53 11/01/17 20:23 ESR C-React Prot High Sens > 15.00 H Stool Occult Blood IgG 403.5 L IgA < 40.0 L IgM 72.4 Mycoplasma pneumon IgG Mycoplasma pneumon IgM
--- NOTE | 2017-11-01 22:07 | CP.PCM.PN ---
Subjective - Date & Time of Evaluation Date of Evaluation: 10/30/17 Time of Evaluation: 22:05 - Subjective Subjective: Patient is having increasing coughing episodes. No fever today. Poor intake noted. Still producing hernán mucus. No chest pain. Vital signs stable. Mild tachycardia, mildly tachypnea, oxygen saturation is normal. Chest good air entry minimal expiratory wheezing Regular heart sound. Abdominal tenderness negative Repeat chest x-ray showing still right upper lung infiltration. Labs reviewed Assessment: 36-year-old female now admitted with the acute pneumonia, with the symptoms of sepsis. Awaiting for sputum AFB. Continue the intravenous antibiotic. Culture pending and will follow the patient Objective - Vital Signs/Intake and Output Vital Signs (last 24 hours): Temp Pulse Resp BP Pulse Ox 98.3 F 96 H 20 98/58 L 98 11/01/17 17:35 11/01/17 17:35 11/01/17 17:35 11/01/17 17:35 11/01/17 17:35 - Medications Medications: Current Medications Albuterol/Ipratropium (Duoneb 3 Mg/0.5 Mg (3 Ml) Ud) 3 ml INH RQ6 LORRI Last Admin: 11/01/17 21:02 Dose: 3 ml Famotidine (Pepcid) 20 mg PO DAILY LORRI Last Admin: 11/01/17 09:36 Dose: 20 mg Gabapentin (Neurontin) 100 mg PO BID LORRI Last Admin: 11/01/17 18:18 Dose: 100 mg Vancomycin/Sodium Chloride (Vancomycin 1 Gm/Ns 200 Ml) 1 gm in 200 mls @ 133.333 mls/hr IVPB Q12H LORRI; Protocol Stop: 11/03/17 16:01 Last Admin: 11/01/17 16:18 Dose: 133.333 mls/hr Piperacillin Sod/Tazobactam (Sod 3.375 gm/ Sodium Chloride) 100 mls @ 200 mls/hr IVPB Q6H LORRI; Protocol Last Admin: 11/01/17 18:18 Dose: 200 mls/hr Oxycodone/Acetaminophen (Percocet 5/325 Mg Tab) 1 tab PO Q6H PRN PRN Reason: Pain, moderate (4-7) Stop: 11/03/17 18:21 Last Admin: 11/01/17 21:22 Dose: 1 tab Promethazine HCl/Codeine (Phenergan/Codeine Oral Syrup) 5 ml PO Q6H PRN PRN Reason: Cough Last Admin: 11/01/17 21:18 Dose: 5 ml - Labs Labs: 10/31/17 14:06 10/31/17 14:06
--- NOTE | 2017-11-01 22:14 | CP.PCM.PN ---
Subjective - Date & Time of Evaluation Date of Evaluation: 10/31/17 Time of Evaluation: 22:13 - Subjective Subjective: Patient is still continues to have increasing coughing episodes. Sometimes associated with abdominal pain. She has no nausea no vomiting On examination: Vital signs are stable otherwise. Chest bilateral good air entry, wheezing noted on the right lung regular heart sound nontender abdomen No rash noted. Patient is tolerating the antibiotic Labs reviewed Liver function test is normal renal function is normal. HIV test is negative CBC anemia noted, most likely iron deficiency like he Assessment: 36-year-old female with a history of recurrent ear infection in the past now admitted with acute pneumonia, culture showing evidence of Streptococcus pneumonia. Currently on antibiotic, responding at this time. Cough is still present. Will continue the current treatment. Infectious disease evaluation. And will follow-up the patient Objective - Vital Signs/Intake and Output Vital Signs (last 24 hours): Temp Pulse Resp BP Pulse Ox 98.3 F 96 H 20 98/58 L 98 11/01/17 17:35 11/01/17 17:35 11/01/17 17:35 11/01/17 17:35 11/01/17 17:35 - Medications Medications: Current Medications Albuterol/Ipratropium (Duoneb 3 Mg/0.5 Mg (3 Ml) Ud) 3 ml INH RQ6 LORRI Last Admin: 11/01/17 21:02 Dose: 3 ml Famotidine (Pepcid) 20 mg PO DAILY LORRI Last Admin: 11/01/17 09:36 Dose: 20 mg Gabapentin (Neurontin) 100 mg PO BID LORRI Last Admin: 11/01/17 18:18 Dose: 100 mg Vancomycin/Sodium Chloride (Vancomycin 1 Gm/Ns 200 Ml) 1 gm in 200 mls @ 133.333 mls/hr IVPB Q12H LORRI; Protocol Stop: 11/03/17 16:01 Last Admin: 11/01/17 16:18 Dose: 133.333 mls/hr Piperacillin Sod/Tazobactam (Sod 3.375 gm/ Sodium Chloride) 100 mls @ 200 mls/hr IVPB Q6H LORRI; Protocol Last Admin: 11/01/17 18:18 Dose: 200 mls/hr Oxycodone/Acetaminophen (Percocet 5/325 Mg Tab) 1 tab PO Q6H PRN PRN Reason: Pain, moderate (4-7) Stop: 11/03/17 18:21 Last Admin: 11/01/17 21:22 Dose: 1 tab Promethazine HCl/Codeine (Phenergan/Codeine Oral Syrup) 5 ml PO Q6H PRN PRN Reason: Cough Last Admin: 11/01/17 21:18 Dose: 5 ml - Labs Labs: 10/31/17 14:06 10/31/17 14:06
--- NOTE | 2017-11-01 22:15 | CP.PCM.PN ---
Subjective - Date & Time of Evaluation Date of Evaluation: 11/01/17 Time of Evaluation: 22:15 - Subjective Subjective: Patient is still continues to have increasing coughing episodes. Sometimes associated with abdominal pain. She has no nausea no vomiting On examination: Vital signs are stable otherwise. Chest bilateral good air entry, wheezing noted on the right lung regular heart sound nontender abdomen No rash noted. Patient is tolerating the antibiotic Labs reviewed Liver function test is normal renal function is normal. 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 Assessment: 36-year-old female with a history of recurrent ear infection in the past now admitted with acute pneumonia, culture showing evidence of Streptococcus pneumonia. Currently on antibiotic, responding at this time. Cough is still present. Will continue the current treatment. Infectious disease evaluation. 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 Patient is possibly having susceptibility to infection because of the immune deficiency. Objective - Vital Signs/Intake and Output Vital Signs (last 24 hours): Temp Pulse Resp BP Pulse Ox 98.3 F 96 H 20 98/58 L 98 11/01/17 17:35 11/01/17 17:35 11/01/17 17:35 11/01/17 17:35 11/01/17 17:35 - Medications Medications: Current Medications Albuterol/Ipratropium (Duoneb 3 Mg/0.5 Mg (3 Ml) Ud) 3 ml INH RQ6 LORRI Last Admin: 11/01/17 21:02 Dose: 3 ml Famotidine (Pepcid) 20 mg PO DAILY LORRI Last Admin: 11/01/17 09:36 Dose: 20 mg Gabapentin (Neurontin) 100 mg PO BID LORRI Last Admin: 11/01/17 18:18 Dose: 100 mg Vancomycin/Sodium Chloride (Vancomycin 1 Gm/Ns 200 Ml) 1 gm in 200 mls @ 133.333 mls/hr IVPB Q12H LORRI; Protocol Stop: 11/03/17 16:01 Last Admin: 11/01/17 16:18 Dose: 133.333 mls/hr Piperacillin Sod/Tazobactam (Sod 3.375 gm/ Sodium Chloride) 100 mls @ 200 mls/hr IVPB Q6H LORRI; Protocol Last Admin: 11/01/17 18:18 Dose: 200 mls/hr Oxycodone/Acetaminophen (Percocet 5/325 Mg Tab) 1 tab PO Q6H PRN PRN Reason: Pain, moderate (4-7) Stop: 11/03/17 18:21 Last Admin: 11/01/17 21:22 Dose: 1 tab Promethazine HCl/Codeine (Phenergan/Codeine Oral Syrup) 5 ml PO Q6H PRN PRN Reason: Cough Last Admin: 11/01/17 21:18 Dose: 5 ml - Labs Labs: 10/31/17 14:06 10/31/17 14:06
[2017-11-02] MEDS: Albuterol-Ipratrop 3 mg / 0.5 (3 ml) UD INH SCH ×5 (01:57→19:45)
[2017-11-02 03:36] LABS: BASO % 0.3 % (0.0-2.0); EOS # 0.1 K/uL (0.0-0.7); EOS % 3.8 % (0.0-4.0); LYMPH # 0.7 K/uL (1.0-4.3); LYMPH % 23.1 % (20.0-40.0); MEAN CELL VOLUME 74.5 fL (81.0-99.0); MEAN CORPUSCULAR HEMOGLOBIN 24.5 pg (27.0-31.0); MEAN PLATELET VOLUME 6.8 fL (7.2-11.7); MONO # 0.3 K/uL (0.0-0.8); NEUT % 63.8 % (50.0-75.0); NRBC % 0.1 % (0.0-2.0); RBC 3.25 Mil/uL (3.80-5.20); RED CELL DISTRIBUTION WIDTH 18.9 % (11.5-14.5); WHITE BLOOD COUNT 3.1 K/uL (4.8-10.8)
[2017-11-02 04:15] LABS: ALB/GLOB RATIO 1.3 (1.0-2.1); ALBUMIN 3.1 g/dL (3.5-5.0); ALT/SGPT 37 U/L (9-52); AST/SGOT 21 U/L (14-36); BLOOD UREA NITROGEN 6 mg/dL (7-17); CALCIUM 8.3 mg/dl (8.6-10.4); GFR NON-AFRICAN AMERICAN > 60
[2017-11-02] MEDS: Vancomycin 1 gm/NS 200 ml 1 GM/200 ML BAG IVPB SCH ×2 (04:21→16:59)
[2017-11-02] MEDS: Piperacillin/Tazobact 3.375 GM in Sodium Chloride 100 ML IVPB SCH ×3 (06:09→23:46)
[2017-11-02] MEDS ORDERED: Potassium Chloride 20 mEq ER Tab PO ONE (06:56)
[2017-11-02] MEDS: Promethazine/Cod 6.25mg-10mg/5ml Syr UD PO PRN ×2 (09:56→19:33)
[2017-11-02] MEDS ORDERED: Ferric Sodium Gluconat Complex 125 MG in Sodium Chloride 0.9% 100 ML IVPB ONE (10:00)
[2017-11-02] MEDS ORDERED: Ferric Sodium Gluconat Complex 62.5 mg/5 ml Vial IVPB ONE (10:00)
--- NOTE | 2017-11-02 12:34 | CARD ---
APPROVED REPORT Date of service: 11/02/2017 EXAM: Two-dimensional and M-mode echocardiogram with Doppler and color Doppler. Other Information Quality : GoodRhythm : INDICATION Dyspnea Infection: Pneumonia/ Fever 2D DIMENSIONS IVSd0.9 (0.7-1.1cm)LVDd3.9 (3.9-5.9cm) PWd0.9 (0.7-1.1cm)LVDs2.8 (2.5-4.0cm) FS (%) 28.7 %LVEF (%)55.9 (>50%) M-Mode DIMENSIONS Left Atrium (MM)3.63 (2.5-4.0cm)IVSd0.80 (0.7-1.1cm) Aortic Root2.89 (2.2-3.7cm)LVDd4.87 (4.0-5.6cm) Aortic Cusp Exc.2.04 (1.5-2.0cm)PWd0.89 (0.7-1.1cm) FS (%) 34 %LVDs3.20 (2.0-3.8cm) LVEF (%)63 (>50%) Mitral Valve MV E Vgyocxpn70.6cm/sMV A Otmhylnq02.6cm/sE/A ratio1.4 TDI E/Lateral E'0.0E/Medial E'0.0 Tricuspid Valve TR Peak Zhijlxpr101bq/sTR Peak Gr.[id number] LEFT VENTRICLE The left ventricle is normal size. There is normal left ventricular wall thickness. The left ventricular function is normal. The left ventricular ejection fraction is within the normal range. No regional wall motion abnormalities noted. The left ventricular diastolic function is normal. No left ventricle thrombus noted on this study. There is no ventricular septal defect visualized. There is no left ventricular aneurysm. There is no mass noted in the left ventricle. RIGHT VENTRICLE The right ventricle is normal size. There is normal right ventricular wall thickness. The right ventricular systolic function is normal. ATRIA The left atrium size is normal. The right atrium size is normal. The interatrial septum is intact with no evidence for an atrial septal defect. AORTIC VALVE The aortic valve is normal in structure and function. No aortic regurgitation is present. There is no aortic valvular stenosis. There is no aortic valvular vegetation. MITRAL VALVE The mitral valve is normal in structure and function. There is no evidence of mitral valve prolapse. There is no mitral valve stenosis. There is no mitral valve regurgitation noted. TRICUSPID VALVE The tricuspid valve is normal in structure and function. There is mild tricuspid regurgitation. Right ventricular systolic pressure is estimated at 30-40 mmHg. There is no tricuspid valve prolapse or vegetation. There is no tricuspid valve stenosis. PULMONIC VALVE The pulmonary valve is normal in structure and function. There is no pulmonic valvular regurgitation. There is no pulmonic valvular stenosis. GREAT VESSELS The aortic root is normal in size. The ascending aorta is normal in size. The pulmonary artery is normal. The IVC is normal in size and collapses >50% with inspiration. PERICARDIAL EFFUSION The pericardium appears normal. There is no pleural effusion. <Conclusion> The left ventricular function is normal. The left ventricular ejection fraction is within the normal range. No regional wall motion abnormalities noted. There is mild tricuspid regurgitation. Right ventricular systolic pressure is estimated at 30-40 mmHg.
--- NOTE | 2017-11-02 12:54 | CP.PCM.PN ---
<Marques Kang - Last Filed: 11/03/17 00:04> Subjective - Date & Time of Evaluation Date of Evaluation: 11/02/17 Time of Evaluation: 10:30 - Subjective Subjective: PGY-[address] progress note for Hospitalist Dr Townsend service Patient is seen and examined at bedside. Patient states feeling better and her coughing improving. Patient admits to continuing phlegm with red stains throughout. Patient admits that her shortness of breath has also improved significantly. Patient is out of bed and ambulating. Patient continues to remain under droplet precautions. Patient is tolerating diet. Denies fever, chills, chest pain, shortness of breath. Patient admits to loose bowel movements. Objective - Vital Signs/Intake and Output Vital Signs (last 24 hours): Temp Pulse Resp BP Pulse Ox 98.2 F 80 18 101/60 100 11/02/17 07:00 11/02/17 07:00 11/02/17 07:00 11/02/17 07:00 11/02/17 07:00 Intake and Output: 11/02/17 11/02/17 06:59 18:59 Intake Total 1680 Balance 1680 - Medications Medications: Current Medications Albuterol/Ipratropium (Duoneb 3 Mg/0.5 Mg (3 Ml) Ud) 3 ml INH RQ6 LORRI Last Admin: 11/02/17 09:55 Dose: 3 ml Famotidine (Pepcid) 20 mg PO DAILY LORRI Last Admin: 11/02/17 09:57 Dose: 20 mg Gabapentin (Neurontin) 100 mg PO BID LORRI Last Admin: 11/02/17 09:57 Dose: 100 mg Vancomycin/Sodium Chloride (Vancomycin 1 Gm/Ns 200 Ml) 1 gm in 200 mls @ 133.333 mls/hr IVPB Q12H LORRI; Protocol Stop: 11/03/17 16:01 Last Admin: 11/02/17 04:21 Dose: 133.333 mls/hr Piperacillin Sod/Tazobactam (Sod 3.375 gm/ Sodium Chloride) 100 mls @ 200 mls/hr IVPB Q6H LORRI; Protocol Last Admin: 11/02/17 06:09 Dose: 200 mls/hr Oxycodone/Acetaminophen (Percocet 5/325 Mg Tab) 1 tab PO Q6H PRN PRN Reason: Pain, moderate (4-7) Stop: 11/03/17 18:21 Last Admin: 11/01/17 21:22 Dose: 1 tab Promethazine HCl/Codeine (Phenergan/Codeine Oral Syrup) 5 ml PO Q6H PRN PRN Reason: Cough Last Admin: 11/02/17 09:56 Dose: 5 ml - Labs Labs: 11/02/17 03:30 11/02/17 03:30 - Constitutional Appears: Well, Non-toxic, No Acute Distress - Head Exam Head Exam: ATRAUMATIC, NORMAL INSPECTION, NORMOCEPHALIC - Eye Exam Eye Exam: EOMI, Normal appearance - ENT Exam ENT Exam: Mucous Membranes Moist, Normal Exam - Neck Exam Neck Exam: Full ROM, Normal Inspection - Respiratory Exam Respiratory Exam: NORMAL BREATHING PATTERN. absent: Accessory Muscle Use, Rales, Rhonchi, Wheezes, Respiratory Distress Additional comments: decreased lung sounds on upper lobe of right lung - Cardiovascular Exam Cardiovascular Exam: REGULAR RHYTHM, +S1, +S2. absent: Tachycardia - GI/Abdominal Exam GI & Abdominal Exam: Soft, Normal Bowel Sounds. absent: Distended, Guarding, Tenderness, Rebound - Extremities Exam Extremities Exam: Full ROM, Normal Inspection. absent: Calf Tenderness, Tenderness - Back Exam Back Exam: Full ROM, NORMAL INSPECTION - Neurological Exam Neurological Exam: Alert, Awake, Oriented x3 - Psychiatric Exam Psychiatric exam: Normal Affect, Normal Mood - Skin Skin Exam: Dry, Intact, Normal Color, Warm Assessment and Plan - Assessment and Plan (Free Text) Plan: Hemoptysis 2/2 Right Upper Lobe pneumonia, r/o active tuberculosis * CT chest 10/29 - Right upper lobe pneumonia, predominantly involving the apex and posterior segment of the right upper lobe. * Cxray 10/29 - right upper lobe pneumo * repeat Cxray 10/30 - no change in Rt upper pneumonia * repeat Cxray 11/01 - stable right upper lobe pneumonia * vitals within normal limits, afebrile at 98.2 on 11/02 * WBC 11/01: 3.1 * EKG on 10/29 - sinus tachycardia, otherwise normal EKG * echo 11/02 - mild tricuspid regurgitation, otherwise normal findings * urine culture - negative * stool occult blood - negative * blood culture - no growth after 4 hours * Blood culture gram stain PNA FISH- strep pneumonia Final * M. 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 * Dr Santoro ID consult - await subclass IgG, consider Iv IG/heme eval Prophylaxis * DVT: SCDs * GI: Pepcid 20 mg PO daily * pain management: gabapentin PO BID, Percocet PO Q6hr PRN * Heart healthy diet * Ensure clear supplements, 3 per day Plan discussed with Dr Cary Kang, PGY-1 <Omar Townsend - Last Filed: 11/05/17 18:07> Attending/Attestation - Attestation I have personally seen and examined this patient.: Yes I have fully participated in the care of the patient.: Yes I have reviewed all pertinent clinical information, including history, physical exam and plan: Yes Notes (Text): Hemoptysis 2/2 Right Upper Lobe pneumonia, r/o active tuberculosis
--- NOTE | 2017-11-02 16:44 | CP.PCM.PN ---
Subjective - Date & Time of Evaluation Date of Evaluation: 11/02/17 Time of Evaluation: 06:00 - Subjective Subjective: await echo IgA ad IgG low await subclass IgG - consider Iv IG/ heme eval cont IV antibiotics Objective - Vital Signs/Intake and Output Vital Signs (last 24 hours): Temp Pulse Resp BP Pulse Ox 98.8 F 86 18 103/64 100 11/02/17 15:00 11/02/17 15:00 11/02/17 15:00 11/02/17 15:00 11/02/17 15:00 Intake and Output: 11/02/17 11/02/17 06:59 18:59 Intake Total 1680 Balance 1680 - Medications Medications: Current Medications Albuterol/Ipratropium (Duoneb 3 Mg/0.5 Mg (3 Ml) Ud) 3 ml INH RQ6 LORRI Last Admin: 11/02/17 13:21 Dose: 3 ml Famotidine (Pepcid) 20 mg PO DAILY LORRI Last Admin: 11/02/17 09:57 Dose: 20 mg Gabapentin (Neurontin) 100 mg PO BID LORRI Last Admin: 11/02/17 09:57 Dose: 100 mg Vancomycin/Sodium Chloride (Vancomycin 1 Gm/Ns 200 Ml) 1 gm in 200 mls @ 133.333 mls/hr IVPB Q12H LORRI; Protocol Stop: 11/03/17 16:01 Last Admin: 11/02/17 04:21 Dose: 133.333 mls/hr Piperacillin Sod/Tazobactam (Sod 3.375 gm/ Sodium Chloride) 100 mls @ 200 mls/hr IVPB Q6H LORRI; Protocol Last Admin: 11/02/17 06:09 Dose: 200 mls/hr Oxycodone/Acetaminophen (Percocet 5/325 Mg Tab) 1 tab PO Q6H PRN PRN Reason: Pain, moderate (4-7) Stop: 11/03/17 18:21 Last Admin: 11/01/17 21:22 Dose: 1 tab Promethazine HCl/Codeine (Phenergan/Codeine Oral Syrup) 5 ml PO Q6H PRN PRN Reason: Cough Last Admin: 11/02/17 09:56 Dose: 5 ml - Labs Labs: 11/02/17 03:30 11/02/17 03:30 - Constitutional Appears: Non-toxic, Chronically Ill - Head Exam Head Exam: NORMOCEPHALIC - Eye Exam Eye Exam: PERRL - ENT Exam ENT Exam: Mucous Membranes Dry - Neck Exam Neck Exam: absent: Lymphadenopathy - Respiratory Exam Respiratory Exam: Decreased Breath Sounds, Rhonchi, Wheezes - Cardiovascular Exam Cardiovascular Exam: REGULAR RHYTHM - GI/Abdominal Exam GI & Abdominal Exam: Distended, Soft - Rectal Exam Rectal Exam: Deferred - Exam Exam: NORMAL INSPECTION - Extremities Exam Extremities Exam: absent: Pedal Edema - Back Exam Back Exam: absent: CVA tenderness (L), CVA tenderness (R) - Neurological Exam Neurological Exam: Alert, Awake, Oriented x3 - Psychiatric Exam Psychiatric exam: Normal Mood - Skin Skin Exam: Dry Assessment and Plan (1) Pneumonia Status: Acute (2) Pneumococcal sepsis Status: Acute (3) IgA deficiency Status: Acute - Assessment and Plan (Free Text) Assessment: await echo IgA ad IgG low await subclass IgG - consider Iv IG/ heme eval cont IV antibiotics
[2017-11-02] MEDS ORDERED: Pneumococcal 23-Valent Vaccine IM ONE (18:29)
[2017-11-02 18:51] LABS: C. PNEUMONIAE IGA <1:16 (<1:16); C. PNEUMONIAE IGG <1:64 (<1:64); C. PNEUMONIAE IGM <1:10 (<1:10); C. PSITTACI IGA <1:16 (<1:16); C. PSITTACI IGG <1:64 (<1:64); C. PSITTACI IGM <1:10 (<1:10)
[2017-11-02] MEDS: Oxycodone/Acetaminophen 5/325 mg Tab PO PRN (21:53)
[2017-11-03] MEDS: Albuterol-Ipratrop 3 mg / 0.5 (3 ml) UD INH SCH ×4 (01:31→20:00)
[2017-11-03] MEDS: Promethazine/Cod 6.25mg-10mg/5ml Syr UD PO PRN ×3 (03:28→23:21)
[2017-11-03] MEDS: Vancomycin 1 gm/NS 200 ml 1 GM/200 ML BAG IVPB SCH ×2 (03:28→16:20)
[2017-11-03] MEDS: Piperacillin/Tazobact 3.375 GM in Sodium Chloride 100 ML IVPB SCH ×5 (05:35→23:18)
[2017-11-03 08:28] LABS: BASO % 0.4 % (0.0-2.0); EOS # 0.2 K/uL (0.0-0.7); EOS % 4.4 % (0.0-4.0); HEMOGLOBIN 8.5 g/dL (11.0-16.0); LYMPH # 0.6 K/uL (1.0-4.3); LYMPH % 17.3 % (20.0-40.0); MEAN CELL VOLUME 74.2 fL (81.0-99.0); MEAN CORPUSCULAR HEMOGLOBIN 24.2 pg (27.0-31.0); MEAN CORPUSCULAR HGB CONC 32.6 g/dL (33.0-37.0); MONO # 0.3 K/uL (0.0-0.8); MONO % 7.2 % (0.0-10.0); NEUT # 2.6 K/uL (1.8-7.0); NEUT % 70.7 % (50.0-75.0); NRBC % 0.1 % (0.0-2.0); RBC 3.5 Mil/uL (3.80-5.20); RED CELL DISTRIBUTION WIDTH 18.5 % (11.5-14.5); WHITE BLOOD COUNT 3.7 K/uL (4.8-10.8)
[2017-11-03 08:59] LABS: ALB/GLOB RATIO 1.1 (1.0-2.1); ALT/SGPT 41 U/L (9-52); AST/SGOT 32 U/L (14-36); BLOOD UREA NITROGEN 7 mg/dL (7-17); CALCIUM 8.2 mg/dl (8.6-10.4); GFR NON-AFRICAN AMERICAN > 60
[2017-11-03] MEDS: Acetylcysteine 20% Inhal Soln (4ml) INH SCH ×2 (17:20→20:00)
--- NOTE | 2017-11-03 17:21 | CP.PCM.PN ---
<Justin Plasencia - Last Filed: 11/03/17 17:11> Subjective - Date & Time of Evaluation Date of Evaluation: 11/03/17 Time of Evaluation: 09:45 - Subjective Subjective: Progress Note for Hospitalist Service (covering for Dr. Gaona) Pt seen and examined at bedside this am. Denies any acute complaints. Reports productive cough with yellow sputum but denies hemoptysis. Denied fever, chills, chest pain, shortness of breath, n/v/d/c, abd pain, urinary complaints, or other symptoms. Reports good appetite. Patient at bedside with family present. Objective - Vital Signs/Intake and Output Vital Signs (last 24 hours): Temp Pulse Resp BP Pulse Ox 98.5 F 92 H 18 95/62 L 97 11/03/17 15:00 11/03/17 15:00 11/03/17 15:00 11/03/17 15:00 11/03/17 15:00 Intake and Output: 11/03/17 11/03/17 06:59 18:59 Intake Total 900 900 Balance 900 900 - Medications Medications: Current Medications Acetylcysteine (Acetylcysteine 20%) 4 ml INH RQ6 [facility] Albuterol/Ipratropium (Duoneb 3 Mg/0.5 Mg (3 Ml) Ud) 3 ml INH RQ6 [facility] Last Admin: 11/03/17 13:47 Dose: Not Given Famotidine (Pepcid) 20 mg PO DAILY [facility] Last Admin: 11/03/17 10:50 Dose: 20 mg Gabapentin (Neurontin) 100 mg PO BID [facility] Last Admin: 11/03/17 10:50 Dose: 100 mg Piperacillin Sod/Tazobactam (Sod 3.375 gm/ Sodium Chloride) 100 mls @ 200 mls/hr IVPB Q6H [facility]; Protocol Last Admin: 11/03/17 11:05 Dose: 200 mls/hr Oxycodone/Acetaminophen (Percocet 5/325 Mg Tab) 1 tab PO Q6H PRN PRN Reason: Pain, moderate (4-7) Stop: 11/03/17 18:21 Last Admin: 11/02/17 21:53 Dose: 1 tab Promethazine HCl/Codeine (Phenergan/Codeine Oral Syrup) 5 ml PO Q6H PRN PRN Reason: Cough Last Admin: 11/03/17 16:20 Dose: 5 ml - Labs Labs: 11/03/17 08:19 11/03/17 08:19 - Constitutional Appears: Non-toxic, No Acute Distress - Head Exam Head Exam: ATRAUMATIC, NORMOCEPHALIC - Eye Exam Eye Exam: EOMI, Normal appearance, PERRL - ENT Exam ENT Exam: Mucous Membranes Moist - Respiratory Exam Respiratory Exam: NORMAL BREATHING PATTERN Additional comments: Trace crackles heard in R lung base - Cardiovascular Exam Cardiovascular Exam: REGULAR RHYTHM, +S1, +S2 - GI/Abdominal Exam GI & Abdominal Exam: Soft, Normal Bowel Sounds. absent: Distended, Firm, Guarding, Rigid, Tenderness, Organomegaly - Extremities Exam Extremities Exam: Full ROM, Normal Capillary Refill, Normal Inspection - Neurological Exam Neurological Exam: Alert, Awake, CN II-XII Intact, Normal Gait, Oriented x3 - Psychiatric Exam Psychiatric exam: Normal Affect, Normal Mood - Skin Skin Exam: Dry, Intact, Normal Color, Warm Assessment and Plan - Assessment and Plan (Free Text) Assessment: 36F [place] female with no remarkable PMhx admitted for pneumonia, r/o active TB infection. Plan: Hemoptysis 2/2 Right Upper Lobe pneumonia, r/o active tuberculosis CT chest 10/29 - Right upper lobe pneumonia, predominantly involving the apex and posterior segment of the right upper lobe. Cxray 10/29 - right upper lobe pneumo repeat Cxray 10/30 - no change in Rt upper pneumonia repeat Cxray 11/01 - stable right upper lobe pneumonia Afebrile, vitals stable WBC 11/03: 3.7 EKG on 10/29 - sinus tachycardia, otherwise normal EKG Echo 11/02 - mild tricuspid regurgitation, otherwise normal findings urine culture - negative stool occult blood - negative blood culture on 10/29/17 no growth final Blood culture gram stain PNA FISH- strep pneumonia Final M. 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 Dr Santoro ID consult - await subclass IgG, consider Iv IG/heme eval Prophylaxis DVT: SCDs GI: Pepcid 20 mg PO daily pain management: gabapentin PO BID, Percocet PO Q6hr PRN Heart healthy diet Ensure clear supplements, 3 per day Pt seen, examined with, and plan discussed with Dr. Townsend, attending. Justin Plasencia DO PGY-1, Market Risk Specialist Pager #[phone] <Omar Townsend - Last Filed: 11/05/17 18:07> Attending/Attestation - Attestation I have personally seen and examined this patient.: Yes I have fully participated in the care of the patient.: Yes I have reviewed all pertinent clinical information, including history, physical exam and plan: Yes
--- NOTE | 2017-11-03 18:31 | CP.PCM.PN ---
Subjective - Date & Time of Evaluation Date of Evaluation: 11/03/17 Time of Evaluation: 08:00 - Subjective Subjective: iv rx in progress improving Objective - Vital Signs/Intake and Output Vital Signs (last 24 hours): Temp Pulse Resp BP Pulse Ox 98.5 F 92 H 18 95/62 L 97 11/03/17 15:00 11/03/17 15:00 11/03/17 15:00 11/03/17 15:00 11/03/17 15:00 Intake and Output: 11/03/17 11/03/17 06:59 18:59 Intake Total 900 900 Balance 900 900 - Medications Medications: Current Medications Acetylcysteine (Acetylcysteine 20%) 4 ml INH RQ6 [facility] Albuterol/Ipratropium (Duoneb 3 Mg/0.5 Mg (3 Ml) Ud) 3 ml INH RQ6 [facility] Last Admin: 11/03/17 13:47 Dose: Not Given Famotidine (Pepcid) 20 mg PO DAILY [facility] Last Admin: 11/03/17 10:50 Dose: 20 mg Gabapentin (Neurontin) 100 mg PO BID [facility] Last Admin: 11/03/17 17:50 Dose: 100 mg Piperacillin Sod/Tazobactam (Sod 3.375 gm/ Sodium Chloride) 100 mls @ 200 mls/hr IVPB Q6H [facility]; Protocol Last Admin: 11/03/17 17:50 Dose: 200 mls/hr Promethazine HCl/Codeine (Phenergan/Codeine Oral Syrup) 5 ml PO Q6H PRN PRN Reason: Cough Last Admin: 11/03/17 16:20 Dose: 5 ml - Labs Labs: 11/03/17 08:19 11/03/17 08:19 - Constitutional Appears: Non-toxic, Chronically Ill - Head Exam Head Exam: NORMOCEPHALIC - Eye Exam Eye Exam: PERRL - ENT Exam ENT Exam: Mucous Membranes Dry - Neck Exam Neck Exam: absent: Lymphadenopathy - Respiratory Exam Respiratory Exam: Decreased Breath Sounds, Rhonchi - Cardiovascular Exam Cardiovascular Exam: REGULAR RHYTHM - GI/Abdominal Exam GI & Abdominal Exam: Distended Assessment and Plan (1) Pneumonia Status: Acute (2) Pneumococcal sepsis Status: Acute (3) IgA deficiency Status: Acute - Assessment and Plan (Free Text) Assessment: 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
[2017-11-04] MEDS: Acetylcysteine 20% Inhal Soln (4ml) INH SCH ×4 (01:07→20:13)
[2017-11-04] MEDS: Albuterol-Ipratrop 3 mg / 0.5 (3 ml) UD INH SCH ×4 (01:07→20:13)
[2017-11-04 01:12] VITALS: RESP 20
[2017-11-04] MEDS: Piperacillin/Tazobact 3.375 GM in Sodium Chloride 100 ML IVPB SCH ×3 (05:34→17:05)
[2017-11-04 07:18] LABS: BASO % 0.4 % (0.0-2.0); EOS # 0.2 K/uL (0.0-0.7); EOS % 3.9 % (0.0-4.0); LYMPH # 0.7 K/uL (1.0-4.3); LYMPH % 15.8 % (20.0-40.0); MEAN CELL VOLUME 75.6 fL (81.0-99.0); MEAN CORPUSCULAR HEMOGLOBIN 24.2 pg (27.0-31.0); MEAN CORPUSCULAR HGB CONC 32.1 g/dL (33.0-37.0); MEAN PLATELET VOLUME 7.4 fL (7.2-11.7); MONO # 0.3 K/uL (0.0-0.8); MONO % 6.7 % (0.0-10.0); NEUT # 3.5 K/uL (1.8-7.0); NEUT % 73.2 % (50.0-75.0); NRBC % 0.1 % (0.0-2.0); RBC 3.72 Mil/uL (3.80-5.20); RED CELL DISTRIBUTION WIDTH 18.9 % (11.5-14.5); WHITE BLOOD COUNT 4.7 K/uL (4.8-10.8)
[2017-11-04 07:40] LABS: ALB/GLOB RATIO 1.2 (1.0-2.1); ALBUMIN 3.2 g/dL (3.5-5.0); ALT/SGPT 38 U/L (9-52); AST/SGOT 31 U/L (14-36); BLOOD UREA NITROGEN 10 mg/dL (7-17); CALCIUM 8.6 mg/dl (8.6-10.4); GFR NON-AFRICAN AMERICAN > 60
--- NOTE | 2017-11-04 12:42 | CP.PCM.PN ---
<Soni Reeves V - Last Filed: 11/04/17 22:45> Objective - Vital Signs/Intake and Output Vital Signs (last 24 hours): Temp Pulse Resp BP Pulse Ox 98.3 F 83 20 100/63 97 11/04/17 15:00 11/04/17 15:00 11/04/17 15:00 11/04/17 15:00 11/04/17 15:00 - Medications Medications: Current Medications Acetylcysteine (Acetylcysteine 20%) 4 ml INH RQ6 [facility] Last Admin: 11/04/17 20:13 Dose: 4 ml Albuterol/Ipratropium (Duoneb 3 Mg/0.5 Mg (3 Ml) Ud) 3 ml INH RQ6 [facility] Last Admin: 11/04/17 20:13 Dose: 3 ml Famotidine (Pepcid) 20 mg PO DAILY [facility] Last Admin: 11/04/17 09:26 Dose: 20 mg Gabapentin (Neurontin) 100 mg PO BID [facility] Last Admin: 11/04/17 17:05 Dose: 100 mg Piperacillin Sod/Tazobactam (Sod 3.375 gm/ Sodium Chloride) 100 mls @ 200 mls/hr IVPB Q6H [facility]; Protocol Last Admin: 11/04/17 17:05 Dose: 200 mls/hr Promethazine HCl/Codeine (Phenergan/Codeine Oral Syrup) 5 ml PO Q6H PRN PRN Reason: Cough Last Admin: 11/04/17 22:25 Dose: 5 ml Saccharomyces Boulardii (Florastor) 250 mg PO BID [facility] Last Admin: 11/04/17 17:05 Dose: 250 mg - Labs Labs: 11/04/17 07:00 11/04/17 07:00 Attending/Attestation - Attestation I have personally seen and examined this patient.: Yes I have fully participated in the care of the patient.: Yes I have reviewed all pertinent clinical information, including history, physical exam and plan: Yes Notes (Text): Hospitalist Service Covering Dr. Gaona until November 07. Patient seen, examined and case discussed with day-time resident. Assessment and Plan updated below. Patient pending / AFB in regards to TB workup. Patient recommended for SHAHBAZ eval by ID as well as heme onc given immunodeficiency workup which would predispose to Strep pneumoniae and bacteremia. patient had repeat blood cultures. ID d/c vancomcyin today. c/w Zosyn. Assessment/Plan 1) Right Upper Lobe pneumonia Strep Pneumoniae bacteremia Hemotypsis Sepsis Assessment/Plan * ID (Dr Santoro) consulted, recs appreciated * Vancomycin 1gm/NS 200 Ml IVPB Q12 (started 10/29) -- Vanc trough 9.2 * Zosyn 3.375 IVPB Q6H (active since 10/30/17) * SIRS Criteria: leukopenia, fever, source: pneumonia * CT chest 10/29 - Right upper lobe pneumonia, predominantly involving the apex and posterior segment of the right upper lobe. * Cxray 10/29 - right upper lobe pneumo * repeat Cxray 10/30 - no change in Rt upper pneumonia * repeat Cxray 11/01 - stable right upper lobe pneumonia * Blood culture (10/29/17): Streptococcus Pneumoniae (1/2 bottles) * Blood culture (11/04/17): pending * 10/29/17: mycobacterial culture: no acid fast bacilli * 11/01/17: mycobacterial culture: no acid fast bacilli * 11/02/17: mycobacterial culture: no acid fast bacilli * 10/29/17: normal oral teresa * Phenergan/codeine 5ml PO Q6H PRN cough * Florastor 250mg PO BID * Duoneb 3ml INH RQ6H * Mucomyst 4ml INH RQ6H * Echocardiogram (11/02/17): left ventricular function is normal. ejection fraction is within normal. No regional wall motion abnormalitis noted. Mild tricuspid regurgitiation * ID has recommended for SHAHBAZ: will consult cardiology for consideration. 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 * Low IgG low * IgA: low * IgM: normal * IgE: normal * HIV negative * Quantaferon: negative * negative Certec scan Prophylaxis * DVT: SCDs * GI: Pepcid 20 mg PO daily * pain management: gabapentin PO BID, Percocet PO Q6hr PRN * Heart healthy diet * Ensure clear supplements, 3 per day * Florastor 250mg PO BID <Marques Kang - Last Filed: 11/04/17 23:37> Subjective - Date & Time of Evaluation Date of Evaluation: 11/04/17 Time of Evaluation: 07:40 - Subjective Subjective: PGY-[address] Reeves service Patient is seen and examined at bedside. Patient report no acute events overnight. Patient states feeling much better this morning. Reports breathing better, and coughing less frequently with no sputum. Patient denies seeing blood in sputum yesterday. Patient is ambulating and out of bed, tolerating diet. Patient denies fever, chills, chest pain, shortness of breath, abdominal pain, nausea, vomiting, diarrhea, constipation or dysuria. Objective - Vital Signs/Intake and Output Vital Signs (last 24 hours): Temp Pulse Resp BP Pulse Ox 98.7 F 88 20 96/60 L 98 11/04/17 07:49 11/04/17 07:49 11/04/17 07:49 11/04/17 07:49 11/04/17 07:49 Intake and Output: 11/04/17 11/04/17 06:59 18:59 Intake Total 440 Balance 440 - Medications Medications: Current Medications Acetylcysteine (Acetylcysteine 20%) 4 ml INH RQ6 [facility] Last Admin: 11/04/17 08:19 Dose: 4 ml Albuterol/Ipratropium (Duoneb 3 Mg/0.5 Mg (3 Ml) Ud) 3 ml INH RQ6 [facility] Last Admin: 11/04/17 08:19 Dose: 3 ml Famotidine (Pepcid) 20 mg PO DAILY [facility] Last Admin: 11/04/17 09:26 Dose: 20 mg Gabapentin (Neurontin) 100 mg PO BID [facility] Last Admin: 11/04/17 09:26 Dose: 100 mg Piperacillin Sod/Tazobactam (Sod 3.375 gm/ Sodium Chloride) 100 mls @ 200 ml s/hr IVPB Q6H [facility]; Protocol Last Admin: 11/04/17 12:37 Dose: 200 mls/hr Promethazine HCl/Codeine (Phenergan/Codeine Oral Syrup) 5 ml PO Q6H PRN PRN Reason: Cough Last Admin: 11/03/17 23:21 Dose: 5 ml - Labs Labs: 11/04/17 07:00 11/04/17 07:00 - Constitutional Appears: Well, Non-toxic, No Acute Distress - Head Exam Head Exam: ATRAUMATIC, NORMAL INSPECTION, NORMOCEPHALIC - Eye Exam Eye Exam: EOMI, Normal appearance - ENT Exam ENT Exam: Mucous Membranes Moist, Normal Exam - Neck Exam Neck Exam: Full ROM, Normal Inspection - Respiratory Exam Respiratory Exam: Decreased Breath Sounds. absent: Accessory Muscle Use, Rales, Rhonchi, Wheezes, Respiratory Distress - Cardiovascular Exam Cardiovascular Exam: REGULAR RHYTHM, +S1, +S2 - GI/Abdominal Exam GI & Abdominal Exam: Soft, Normal Bowel Sounds. absent: Distended, Firm, Guarding, Tenderness - Back Exam Back Exam: Full ROM, NORMAL INSPECTION - Neurological Exam Neurological Exam: Alert, Awake, Oriented x3 - Psychiatric Exam Psychiatric exam: Normal Affect, Normal Mood - Skin Skin Exam: Dry, Intact, Normal Color, Warm Assessment and Plan - Assessment and Plan (Free Text) Plan: Hemoptysis 2/2 Right Upper Lobe pneumonia, r/o active tuberculosis CT chest 10/29 - Right upper lobe pneumonia, predominantly involving the apex and posterior segment of the right upper lobe. Cxray 10/29 - right upper lobe pneumo repeat Cxray 10/30 - no change in Rt upper pneumonia repeat Cxray 11/01 - stable right upper lobe pneumonia 11/04 - Afebrile, vitals stable WBC 11/04: 4.7 EKG on 10/29 - sinus tachycardia, otherwise normal EKG Echo 11/02 - mild tricuspid regurgitation, otherwise normal findings urine culture - negative stool occult blood - negative blood culture on 10/29/17 no growth final Repeat blood cultures ordered and collected 11/04 - pending results Blood culture gram stain PNA FISH- strep pneumonia Final M. 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 Dr Santoro ID consult - await subclass IgG, consider Iv IG/heme eval Prophylaxis DVT: SCDs GI: Pepcid 20 mg PO daily pain management: gabapentin PO BID, Percocet PO Q6hr PRN Heart healthy diet Ensure clear supplements, 3 per day Plan discussed with Dr Lala Kang, PGY-1
[2017-11-04] MEDS: Saccharomyces Boulardi 250 mg Cap PO SCH (17:05)
[2017-11-04] MEDS: Promethazine/Cod 6.25mg-10mg/5ml Syr UD PO PRN (22:25)
[2017-11-05] MEDS: Piperacillin/Tazobact 3.375 GM in Sodium Chloride 100 ML IVPB SCH ×4 (00:56→17:16)
[2017-11-05] MEDS: Albuterol-Ipratrop 3 mg / 0.5 (3 ml) UD INH SCH ×4 (01:55→20:02)
[2017-11-05] MEDS: Acetylcysteine 20% Inhal Soln (4ml) INH SCH ×4 (01:55→20:02)
[2017-11-05] MEDS: Promethazine/Cod 6.25mg-10mg/5ml Syr UD PO PRN ×3 (03:31→19:04)
--- NOTE | 2017-11-05 08:06 | CP.PCM.PN ---
Addendum entered and electronically signed by Soni Reeves DO 11/05/17 15:13: Note: patient has had biopolymer injection ten years ago for butt lift. Unclear known side effects of this injection. Original Note: <Kayla Shrestha - Last Filed: 11/05/17 08:42> Subjective - Date & Time of Evaluation Date of Evaluation: 11/05/17 Time of Evaluation: 08:05 - Subjective Subjective: Pt examined at bedside, no acute events overnight. Pt reports improving cough and SOB. Pt denies chest pain, nausea, vomiting, diarrhea Objective - Vital Signs/Intake and Output Vital Signs (last 24 hours): Temp Pulse Resp BP Pulse Ox 98.2 F 88 20 97/57 L 95 11/05/17 00:00 11/05/17 00:00 11/05/17 00:00 11/05/17 00:00 11/05/17 00:00 - Medications Medications: Current Medications Acetylcysteine (Acetylcysteine 20%) 4 ml INH RQ6 [facility] Last Admin: 11/05/17 01:55 Dose: Not Given Albuterol/Ipratropium (Duoneb 3 Mg/0.5 Mg (3 Ml) Ud) 3 ml INH RQ6 [facility] Last Admin: 11/05/17 01:55 Dose: Not Given Famotidine (Pepcid) 20 mg PO DAILY [facility] Last Admin: 11/04/17 09:26 Dose: 20 mg Gabapentin (Neurontin) 100 mg PO BID [facility] Last Admin: 11/04/17 17:05 Dose: 100 mg Piperacillin Sod/Tazobactam (Sod 3.375 gm/ Sodium Chloride) 100 mls @ 200 mls/hr IVPB Q6H [facility]; Protocol Last Admin: 11/05/17 05:57 Dose: 200 mls/hr Promethazine HCl/Codeine (Phenergan/Codeine Oral Syrup) 5 ml PO Q6H PRN PRN Reason: Cough Last Admin: 11/05/17 03:31 Dose: 5 ml Saccharomyces Boulardii (Florastor) 250 mg PO BID [facility] Last Admin: 11/04/17 17:05 Dose: 250 mg - Labs Labs: 11/04/17 07:00 11/04/17 07:00 - Constitutional Appears: Non-toxic - Head Exam Head Exam: ATRAUMATIC, NORMAL INSPECTION, NORMOCEPHALIC - Eye Exam Eye Exam: EOMI - ENT Exam ENT Exam: Mucous Membranes Moist, Normal Exam - Neck Exam Neck Exam: Normal Inspection - Respiratory Exam Respiratory Exam: Decreased Breath Sounds - Cardiovascular Exam Cardiovascular Exam: REGULAR RHYTHM, +S1, +S2. absent: Murmur - GI/Abdominal Exam GI & Abdominal Exam: Soft, Normal Bowel Sounds. absent: Distended - Extremities Exam Extremities Exam: Normal Inspection - Neurological Exam Neurological Exam: Alert, Awake, Oriented x3 - Psychiatric Exam Psychiatric exam: Normal Affect, Normal Mood - Skin Skin Exam: Dry, Intact, Normal Color, Warm Assessment and Plan - Assessment and Plan (Free Text) Assessment: Assessment/Plan 1) Right Upper Lobe pneumonia Strep Pneumoniae bacteremia Hemotypsis Sepsis Assessment/Plan * ID (Dr Santoro) consulted, recs appreciated * Vancomycin 1gm/NS 200 Ml IVPB Q12 (started 10/29) -- Vanc trough 9.2 * Zosyn 3.375 IVPB Q6H (active since 10/30/17) * SIRS Criteria: leukopenia, fever, source: pneumonia * CT chest 10/29 - Right upper lobe pneumonia, predominantly involving the apex and posterior segment of the right upper lobe. * Cxray 10/29 - right upper lobe pneumo * repeat Cxray 10/30 - no change in Rt upper pneumonia * repeat Cxray 11/01 - stable right upper lobe pneumonia * Blood culture (10/29/17): Streptococcus Pneumoniae (1/2 bottles) * Blood culture (11/04/17): pending * 10/29/17: mycobacterial culture: no acid fast bacilli * 11/01/17: mycobacterial culture: no acid fast bacilli * 11/02/17: mycobacterial culture: no acid fast bacilli * 10/29/17: normal oral teresa * Phenergan/codeine 5ml PO Q6H PRN cough * Florastor 250mg PO BID * Duoneb 3ml INH RQ6H * Mucomyst 4ml INH RQ6H * Echocardiogram (11/02/17): left ventricular function is normal. ejection fraction is within normal. No regional wall motion abnormalitis noted. Mild tricuspid regurgitiation * ID has recommended for SHAHBAZ: will consult cardiology for consideration. 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 * Low IgG low * IgA: low * IgM: normal * IgE: normal * HIV negative * Quantaferon: negative * negative Certec scan Ppx * DVT: SCDs * GI: Pepcid 20 mg PO daily * pain management: gabapentin PO BID, Percocet PO Q6hr PRN * Heart healthy diet * Ensure clear supplements, 3 per day * Florastor 250mg PO BID <Soni Reeves V - Last Filed: 11/05/17 15:10> Objective - Vital Signs/Intake and Output Vital Signs (last 24 hours): Temp Pulse Resp BP Pulse Ox 98.2 F 80 20 93/57 L 97 11/05/17 08:00 11/05/17 08:00 11/05/17 08:00 11/05/17 08:00 11/05/17 08:00 - Medications Medications: Current Medications Acetylcysteine (Acetylcysteine 20%) 4 ml INH RQ6 [facility] Last Admin: 11/05/17 13:10 Dose: 4 ml Albuterol/Ipratropium (Duoneb 3 Mg/0.5 Mg (3 Ml) Ud) 3 ml INH RQ6 [facility] Last Admin: 11/05/17 13:10 Dose: 3 ml Famotidine (Pepcid) 20 mg PO DAILY [facility] Last Admin: 11/05/17 10:40 Dose: 20 mg Gabapentin (Neurontin) 100 mg PO BID [facility] Last Admin: 11/05/17 10:40 Dose: 100 mg Piperacillin Sod/Tazobactam (Sod 3.375 gm/ Sodium Chloride) 100 mls @ 200 mls/hr IVPB Q6H [facility]; Protocol Last Admin: 11/05/17 11:54 Dose: 200 mls/hr Promethazine HCl/Codeine (Phenergan/Codeine Oral Syrup) 5 ml PO Q6H PRN PRN Reason: Cough Last Admin: 11/05/17 10:40 Dose: 5 ml Saccharomyces Boulardii (Florastor) 250 mg PO BID [facility] Last Admin: 11/05/17 10:40 Dose: 250 mg - Labs Labs: 11/05/17 08:33 11/05/17 08:33 Attending/Attestation - Attestation I have personally seen and examined this patient.: Yes I have fully participated in the care of the patient.: Yes I have reviewed all pertinent clinical information, including history, physical exam and plan: Yes Notes (Text): Hospitalist Covering Dr. Gaona Assessment and Plan updated below. Discussed with ID, we can discontinue airborne precautions since mycobacterium culture negative times 3. f.u with cardio to see if SHAHBAZ is needed. patient f/u 11/04/17 repeat blood cultures. ID d/c vancomcyin yesterday c/w Zosyn. Assessment/Plan 1) Right Upper Lobe pneumonia Strep Pneumoniae bacteremia Hemotypsis Sepsis Assessment/Plan * ID (Dr Santoro) consulted, recs appreciated * Vancomycin 1gm/NS 200 Ml IVPB Q12 (started 10/29) -- Vanc trough 9.2 * Zosyn 3.375 IVPB Q6H (active since 10/30/17) * SIRS Criteria: leukopenia, fever, source: pneumonia * CT chest 10/29 - Right upper lobe pneumonia, predominantly involving the apex and posterior segment of the right upper lobe. * Cxray 10/29 - right upper lobe pneumo * repeat Cxray 10/30 - no change in Rt upper pneumonia * repeat Cxray 11/01 - stable right upper lobe pneumonia * Blood culture (10/29/17): Streptococcus Pneumoniae (1/2 bottles) * Blood culture (11/04/17): pending * 10/29/17: mycobacterial culture: no acid fast bacilli * 11/01/17: mycobacterial culture: no acid fast bacilli * 11/02/17: mycobacterial culture: no acid fast bacilli * 10/29/17: normal oral teresa * Phenergan/codeine 5ml PO Q6H PRN cough * Florastor 250mg PO BID * Duoneb 3ml INH RQ6H * Mucomyst 4ml INH RQ6H * Echocardiogram (11/02/17): left ventricular function is normal. ejection fracti on is within normal. No regional wall motion abnormalitis noted. Mild tricuspid regurgitiation * ID has recommended for SHAHBAZ: will consult cardiology for consideration. 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 * Low IgG low * IgA: low * IgM: normal * IgE: normal * HIV negative * Quantaferon: negative * negative Certec scan Prophylaxis * DVT: SCDs * GI: Pepcid 20 mg PO daily * pain management: gabapentin PO BID, Percocet PO Q6hr PRN * Heart healthy diet * Ensure clear supplements, 3 per day * Florastor 250mg PO BID
[2017-11-05 08:50] LABS: BASO % 0.5 % (0.0-2.0); EOS # 0.2 K/uL (0.0-0.7); EOS % 4.2 % (0.0-4.0); HEMOGLOBIN 9.2 g/dL (11.0-16.0); LYMPH # 0.8 K/uL (1.0-4.3); LYMPH % 17.4 % (20.0-40.0); MEAN CELL VOLUME 74.5 fL (81.0-99.0); MEAN CORPUSCULAR HEMOGLOBIN 24.7 pg (27.0-31.0); MEAN CORPUSCULAR HGB CONC 33.1 g/dL (33.0-37.0); MEAN PLATELET VOLUME 7.2 fL (7.2-11.7); MONO # 0.3 K/uL (0.0-0.8); MONO % 5.8 % (0.0-10.0); NEUT # 3.3 K/uL (1.8-7.0); NEUT % 72.1 % (50.0-75.0); NRBC % 0.1 % (0.0-2.0); RBC 3.73 Mil/uL (3.80-5.20); RED CELL DISTRIBUTION WIDTH 18.8 % (11.5-14.5); WHITE BLOOD COUNT 4.6 K/uL (4.8-10.8)
[2017-11-05 09:12] LABS: ALB/GLOB RATIO 1.4 (1.0-2.1); ALBUMIN 3.5 g/dL (3.5-5.0); ALT/SGPT 47 U/L (9-52); AST/SGOT 30 U/L (14-36); BLOOD UREA NITROGEN 13 mg/dL (7-17); CALCIUM 8.8 mg/dl (8.6-10.4); GFR NON-AFRICAN AMERICAN > 60
[2017-11-05] MEDS: Saccharomyces Boulardi 250 mg Cap PO SCH ×2 (10:40→17:15)
[2017-11-06] MEDS: Promethazine/Cod 6.25mg-10mg/5ml Syr UD PO PRN ×3 (00:28→17:28)
[2017-11-06] MEDS: Piperacillin/Tazobact 3.375 GM in Sodium Chloride 100 ML IVPB SCH ×5 (00:29→17:39)
[2017-11-06] MEDS: Acetylcysteine 20% Inhal Soln (4ml) INH SCH ×4 (02:57→19:30)
[2017-11-06] MEDS: Albuterol-Ipratrop 3 mg / 0.5 (3 ml) UD INH SCH ×4 (02:57→19:30)
[2017-11-06 08:21] LABS: BASO % 0.5 % (0.0-2.0); EOS # 0.2 K/uL (0.0-0.7); EOS % 4.4 % (0.0-4.0); HEMOGLOBIN 10.1 g/dL (11.0-16.0); LYMPH # 0.9 K/uL (1.0-4.3); LYMPH % 17.7 % (20.0-40.0); MEAN CELL VOLUME 74.8 fL (81.0-99.0); MEAN CORPUSCULAR HEMOGLOBIN 24.4 pg (27.0-31.0); MEAN CORPUSCULAR HGB CONC 32.7 g/dL (33.0-37.0); MEAN PLATELET VOLUME 7.2 fL (7.2-11.7); MONO # 0.3 K/uL (0.0-0.8); MONO % 5.2 % (0.0-10.0); NEUT # 3.7 K/uL (1.8-7.0); NEUT % 72.2 % (50.0-75.0); NRBC % 0.1 % (0.0-2.0); RBC 4.12 Mil/uL (3.80-5.20); RED CELL DISTRIBUTION WIDTH 18.8 % (11.5-14.5); WHITE BLOOD COUNT 5.1 K/uL (4.8-10.8)
[2017-11-06 08:42] LABS: ALB/GLOB RATIO 1.3 (1.0-2.1); ALBUMIN 3.7 g/dL (3.5-5.0); ALT/SGPT 44 U/L (9-52); AST/SGOT 24 U/L (14-36); BLOOD UREA NITROGEN 12 mg/dL (7-17); GFR NON-AFRICAN AMERICAN > 60
--- NOTE | 2017-11-06 09:05 | CP.PCM.CON ---
History of Present Illness - History of Present Illness History of Present Illness: Patient for Tuesday Past Patient History - Past Medical History & Family History Past Medical History?: Yes - Past Social History Smoking Status: Never Smoked - CARDIAC Hx Cardiac Disorders: No - PULMONARY Hx Respiratory Disorders: Yes Hx Asthma: Yes - NEUROLOGICAL Hx Neurological Disorder: No - HEENT Hx HEENT Problems: No - RENAL Hx Chronic Kidney Disease: No - ENDOCRINE/METABOLIC Hx Endocrine Disorders: No - HEMATOLOGICAL/ONCOLOGICAL Hx Blood Disorders: No - INTEGUMENTARY Hx Dermatological Problems: No - MUSCULOSKELETAL/RHEUMATOLOGICAL Hx Musculoskeletal Disorders: No Hx Falls: No - GASTROINTESTINAL Hx Gastrointestinal Disorders: No - GENITOURINARY/GYNECOLOGICAL Hx Genitourinary Disorders: No - PSYCHIATRIC Hx Psychophysiologic Disorder: No Hx Substance Use: No - SURGICAL HISTORY Hx Surgeries: No - ANESTHESIA Hx Anesthesia: No Hx Anesthesia Reactions: No Hx Malignant Hyperthermia: No Has any member of the family had a problem w/ anesthesia?: No Meds Allergies/Adverse Reactions: Allergies Allergy/AdvReac Type Severity Reaction Status Date / Time No Known Allergies Allergy Verified 10/29/17 13:18 - Medications Medications: Current Medications Acetylcysteine (Acetylcysteine 20%) 4 ml INH RQ6 [facility] Last Admin: 11/06/17 08:13 Dose: 4 ml Albuterol/Ipratropium (Duoneb 3 Mg/0.5 Mg (3 Ml) Ud) 3 ml INH RQ6 [facility] Last Admin: 11/06/17 08:13 Dose: 3 ml Famotidine (Pepcid) 20 mg PO DAILY [facility] Last Admin: 11/05/17 10:40 Dose: 20 mg Gabapentin (Neurontin) 100 mg PO BID [facility] Last Admin: 11/05/17 17:15 Dose: 100 mg Piperacillin Sod/Tazobactam (Sod 3.375 gm/ Sodium Chloride) 100 mls @ 200 mls/hr IVPB Q6H [facility]; Protocol Last Admin: 11/06/17 06:16 Dose: 200 mls/hr Promethazine HCl/Codeine (Phenergan/Codeine Oral Syrup) 5 ml PO Q6H PRN PRN Reason: Cough Last Admin: 11/06/17 00:28 Dose: 5 ml Saccharomyces Boulardii (Florastor) 250 mg PO BID [facility] Last Admin: 11/05/17 17:15 Dose: 250 mg Results - Vital Signs Recent Vital Signs: Last Vital Signs Temp 98.0 F 11/06/17 07:50 Pulse 80 11/06/17 07:50 Resp 20 11/06/17 07:50 BP 100/68 11/06/17 07:50 Pulse Ox 99 11/06/17 07:50 - Labs Result Diagrams: 11/06/17 08:09 11/06/17 08:09 Labs: Laboratory Results - last 24 hr 11/05/17 11/05/17 11/06/17 08:33 08:33 08:09 WBC 5.1 RBC 4.12 Hgb 10.1 L Hct 30.8 L MCV 74.8 L MCH 24.4 L MCHC 32.7 L RDW 18.8 H Plt Count 191 MPV 7.2 Neut % (Auto) 72.2 Lymph % (Auto) 17.7 L [place] % (Auto) 5.2 Eos % (Auto) 4.4 H Baso % (Auto) 0.5 Neut # (Auto) 3.7 Lymph # (Auto) 0.9 L [place] # (Auto) 0.3 Eos # (Auto) 0.2 Baso # (Auto) 0.0 ESR 75 H Sodium 141 Potassium 3.9 Chloride 106 Carbon Dioxide 24 Anion Gap 15 BUN 13 Creatinine 0.9 Est GFR ( Amer) > 60 Est GFR (Non-Af Amer) > 60 Random Glucose 91 Calcium 8.8 Phosphorus 4.2 Magnesium 2.4 H Total Bilirubin 0.4 AST 30 ALT 47 Alkaline Phosphatase 133 H C-Reactive Protein 38.50 H Total Protein 6.1 L Albumin 3.5 Globulin 2.6 Albumin/Globulin Ratio 1.4 11/06/17 08:09 WBC RBC Hgb Hct MCV MCH MCHC RDW Plt Count MPV Neut % (Auto) Lymph % (Auto) [place] % (Auto) Eos % (Auto) Baso % (Auto) Neut # (Auto) Lymph # (Auto) [place] # (Auto) Eos # (Auto) Baso # (Auto) ESR Sodium 140 Potassium 4.1 Chloride 104 Carbon Dioxide 23 Anion Gap 17 BUN 12 Creatinine 0.8 Est GFR ( Amer) > 60 Est GFR (Non-Af Amer) > 60 Random Glucose 99 Calcium 9.0 Phosphorus 3.5 Magnesium 2.3 Total Bilirubin 0.4 AST 24 ALT 44 Alkaline Phosphatase 140 H C-Reactive Protein Total Protein 6.5 Albumin 3.7 Globulin 2.8 Albumin/Globulin Ratio 1.3
[2017-11-06] MEDS: Saccharomyces Boulardi 250 mg Cap PO SCH ×2 (09:41→17:28)
--- NOTE | 2017-11-06 10:06 | CP.PCM.PN ---
Subjective - Date & Time of Evaluation Date of Evaluation: 11/06/17 Time of Evaluation: 10:05 - Subjective Subjective: Hospitalist Covering Dr. Gaona Patient seen and examined. Patient denies fever, reports dry cough, denies abdominal pain, denies constipation, denies diarrhea, patient reports she is in better spirits. We are awaiting repeat blood cultures from 11/04/17. Cardiology considering SHAHBAZ for November 08. Objective - Vital Signs/Intake and Output Vital Signs (last 24 hours): Temp Pulse Resp BP Pulse Ox 98.0 F 80 20 100/68 99 11/06/17 07:50 11/06/17 07:50 11/06/17 07:50 11/06/17 07:50 11/06/17 07:50 - Medications Medications: Current Medications Acetylcysteine (Acetylcysteine 20%) 4 ml INH RQ6 [facility] Last Admin: 11/06/17 08:13 Dose: 4 ml Albuterol/Ipratropium (Duoneb 3 Mg/0.5 Mg (3 Ml) Ud) 3 ml INH RQ6 [facility] Last Admin: 11/06/17 08:13 Dose: 3 ml Famotidine (Pepcid) 20 mg PO DAILY [facility] Last Admin: 11/06/17 09:41 Dose: 20 mg Gabapentin (Neurontin) 100 mg PO BID [facility] Last Admin: 11/06/17 09:42 Dose: 100 mg Piperacillin Sod/Tazobactam (Sod 3.375 gm/ Sodium Chloride) 100 mls @ 200 mls/hr IVPB Q6H [facility]; Protocol Last Admin: 11/06/17 06:16 Dose: 200 mls/hr Promethazine HCl/Codeine (Phenergan/Codeine Oral Syrup) 5 ml PO Q6H PRN PRN Reason: Cough Last Admin: 11/06/17 09:42 Dose: 5 ml Saccharomyces Boulardii (Florastor) 250 mg PO BID [facility] Last Admin: 11/06/17 09:41 Dose: 250 mg - Labs Labs: 11/06/17 08:09 11/06/17 08:09 - Constitutional Appears: Non-toxic, No Acute Distress - Head Exam Head Exam: NORMAL INSPECTION - Eye Exam Eye Exam: EOMI - ENT Exam ENT Exam: Mucous Membranes Moist - Respiratory Exam Respiratory Exam: Clear to Ausculation Bilateral, NORMAL BREATHING PATTERN. absent: Rales, Rhonchi, Wheezes - Cardiovascular Exam Cardiovascular Exam: REGULAR RHYTHM, +S1, +S2 - GI/Abdominal Exam GI & Abdominal Exam: Soft, Normal Bowel Sounds. absent: Distended, Firm, Guarding, Rigid, Tenderness, Rebound - Extremities Exam Extremities Exam: absent: Pedal Edema, Tenderness - Back Exam Back Exam: absent: CVA tenderness (L), CVA tenderness (R) - Neurological Exam Neurological Exam: Alert, Awake, Oriented x3 - Psychiatric Exam Psychiatric exam: Normal Affect, Normal Mood - Skin Skin Exam: Dry, Normal Color, Warm Assessment and Plan (1) Pneumococcal sepsis Status: Acute (2) Pneumonia Status: Acute (3) IgA deficiency Status: Acute Attending/Attestation - Attestation I have personally seen and examined this patient.: Yes I have fully participated in the care of the patient.: Yes I have reviewed all pertinent clinical information, including history, physical exam and plan: Yes Notes (Text): Assessment/Plan 1) Right Upper Lobe pneumonia Strep Pneumoniae bacteremia Hemotypsis Sepsis Assessment/Plan * ID (Dr Santoro) consulted, recs appreciated * Vancomycin 1gm/NS 200 Ml IVPB Q12 (started 10/29 d/c 11/04) -- Vanc trough 9.2 * Zosyn 3.375 IVPB Q6H (active since 10/30/17) * SIRS Criteria: leukopenia, fever, source: pneumonia * CT chest 10/29 - Right upper lobe pneumonia, predominantly involving the apex and posterior segment of the right upper lobe. * Cxray 10/29 - right upper lobe pneumo * repeat Cxray 10/30 - no change in Rt upper pneumonia * repeat Cxray 11/01 - stable right upper lobe pneumonia * Blood culture (10/29/17): Streptococcus Pneumoniae (1/2 bottles) * Blood culture (11/04/17): pending * 10/29/17: mycobacterial culture: no acid fast bacilli * 11/01/17: mycobacterial culture: no acid fast bacilli * 11/02/17: mycobacterial culture: no acid fast bacilli * 10/29/17: normal oral teresa * Phenergan/codeine 5ml PO Q6H PRN cough * Florastor 250mg PO BID * Duoneb 3ml INH RQ6H * Mucomyst 4ml INH RQ6H * Echocardiogram (11/02/17): left ventricular function is normal. ejection fraction is within normal. No regional wall motion abnormalitis noted. Mild tricuspid regurgitiation * ID has recommended for SHAHBAZ: will consult cardiology for consideration. Possible for TuesdayNovember 08. 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 * Low IgG low * IgA: low * IgM: normal * IgE: normal * HIV negative * Quantaferon: negative * negative Certec scan * White count normalized-->possible sign immune system improving? Prophylaxis * DVT: SCDs * GI: Pepcid 20 mg PO daily * pain management: gabapentin PO BID, Percocet PO Q6hr PRN * Heart healthy diet * Ensure clear supplements, 3 per day * Florastor 250mg PO BID Disposition: patient to contine IV abx. We are awaiting blood culture from 11/04/17. Unclear what has caused immunodeficiency in this lady. Cardiology is planning for SHAHBAZ on Tuesday. Dr. Gaona to resume care starting tomorrow.
[2017-11-06] MEDS: guaiFENesin 600 mg ER Tab PO SCH ×2 (11:25→21:07)
--- NOTE | 2017-11-06 14:52 | CP.PCM.PN ---
Subjective - Date & Time of Evaluation Date of Evaluation: 11/06/17 Time of Evaluation: 09:00 - Subjective Subjective: afb neg thus far needs 14 days iv rx follow up cxr consider IVIG Objective - Vital Signs/Intake and Output Vital Signs (last 24 hours): Temp Pulse Resp BP Pulse Ox 98.0 F 80 20 100/68 99 11/06/17 07:50 11/06/17 07:50 11/06/17 07:50 11/06/17 07:50 11/06/17 07:50 - Medications Medications: Current Medications Acetylcysteine (Acetylcysteine 20%) 4 ml INH RQ6 [facility] Last Admin: 11/06/17 13:20 Dose: 4 ml Albuterol/Ipratropium (Duoneb 3 Mg/0.5 Mg (3 Ml) Ud) 3 ml INH RQ6 [facility] Last Admin: 11/06/17 13:20 Dose: 3 ml Famotidine (Pepcid) 20 mg PO DAILY [facility] Last Admin: 11/06/17 09:41 Dose: 20 mg Gabapentin (Neurontin) 100 mg PO BID [facility] Last Admin: 11/06/17 09:42 Dose: 100 mg Guaifenesin (Mucinex La) 600 mg PO Q12 [facility] Last Admin: 11/06/17 11:25 Dose: 600 mg Piperacillin Sod/Tazobactam (Sod 3.375 gm/ Sodium Chloride) 100 mls @ 200 mls/hr IVPB Q6H [facility]; Protocol Last Admin: 11/06/17 11:21 Dose: 200 mls/hr Promethazine HCl/Codeine (Phenergan/Codeine Oral Syrup) 5 ml PO Q6H PRN PRN Reason: Cough Last Admin: 11/06/17 09:42 Dose: 5 ml Saccharomyces Boulardii (Florastor) 250 mg PO BID [facility] Last Admin: 11/06/17 09:41 Dose: 250 mg - Labs Labs: 11/06/17 08:09 11/06/17 08:09 Assessment and Plan (1) Pneumonia Status: Acute (2) Pneumococcal sepsis Status: Acute (3) IgA deficiency Status: Acute - Assessment and Plan (Free Text) Assessment: afb neg thus far needs 14 days iv rx follow up cxr consider IVIG
[2017-11-07] MEDS: Piperacillin/Tazobact 3.375 GM in Sodium Chloride 100 ML IVPB SCH ×3 (00:34→12:08)
[2017-11-07] MEDS: Albuterol-Ipratrop 3 mg / 0.5 (3 ml) UD INH SCH ×4 (02:35→20:42)
[2017-11-07] MEDS: Acetylcysteine 20% Inhal Soln (4ml) INH SCH ×4 (02:35→20:42)
[2017-11-07 07:27] LABS: BASO % 0.8 % (0.0-2.0); EOS # 0.2 K/uL (0.0-0.7); EOS % 3.8 % (0.0-4.0); LYMPH % 21.7 % (20.0-40.0); MEAN CELL VOLUME 75.3 fL (81.0-99.0); MEAN CORPUSCULAR HEMOGLOBIN 24.4 pg (27.0-31.0); MEAN CORPUSCULAR HGB CONC 32.4 g/dL (33.0-37.0); MEAN PLATELET VOLUME 7.6 fL (7.2-11.7); MONO # 0.2 K/uL (0.0-0.8); MONO % 5.1 % (0.0-10.0); NEUT # 3.1 K/uL (1.8-7.0); NEUT % 68.6 % (50.0-75.0); NRBC % 0.1 % (0.0-2.0); RBC 4.08 Mil/uL (3.80-5.20); RED CELL DISTRIBUTION WIDTH 18.7 % (11.5-14.5); WHITE BLOOD COUNT 4.5 K/uL (4.8-10.8)
[2017-11-07 07:42] LABS: ALB/GLOB RATIO 1.3 (1.0-2.1); ALBUMIN 3.6 g/dL (3.5-5.0); ALT/SGPT 37 U/L (9-52); AST/SGOT 21 U/L (14-36); BLOOD UREA NITROGEN 13 mg/dL (7-17); CALCIUM 8.8 mg/dl (8.6-10.4); GFR NON-AFRICAN AMERICAN > 60
[2017-11-07] MEDS: Saccharomyces Boulardi 250 mg Cap PO SCH ×2 (09:26→17:41)
[2017-11-07] MEDS: guaiFENesin 600 mg ER Tab PO SCH ×2 (09:26→21:14)
[2017-11-07] MEDS: Promethazine/Cod 6.25mg-10mg/5ml Syr UD PO PRN (17:41)
[2017-11-07] MEDS: Piperacill/Tazo 3.375gm in Dex 3.375 GM/50 ML BAG IVPB SCH (17:55)
--- NOTE | 2017-11-07 18:14 | RAD ---
Date of service: 11/07/2017 HISTORY: Pneumonia. COMPARISON: 11/01/2017. FINDINGS: LUNGS: Improvement without complete resolution right upper lobe pneumonia. Persistent consolidative changes with air bronchograms and volume loss. PLEURA: No significant pleural effusion identified, no pneumothorax apparent. CARDIOVASCULAR: Normal. OSSEOUS STRUCTURES: No significant abnormalities. VISUALIZED UPPER ABDOMEN: Normal. OTHER FINDINGS: None. IMPRESSION: Improving right lobe infiltrate/pneumonia. Follow-up to complete resolution recommended.
--- NOTE | 2017-11-07 20:17 | CP.PCM.PN ---
Subjective - Date & Time of Evaluation Date of Evaluation: 11/07/17 Time of Evaluation: 20:17 - Subjective Subjective: Patient has no pain. Cough still noted. But feeling better. Repeat chest x-ray improvement in the right lung infiltrate noted. On Zosyn. pt is currently pending transesophageal echocardiogram tomorrow. After that patient can be discharged home. Objective - Vital Signs/Intake and Output Vital Signs (last 24 hours): Temp Pulse Resp BP Pulse Ox 98.4 F 93 H 20 96/56 L 98 11/07/17 15:00 11/07/17 15:00 11/07/17 15:00 11/07/17 15:00 11/07/17 15:00 Intake and Output: 11/07/17 11/08/17 18:59 06:59 Intake Total 500 Balance 500 - Medications Medications: Current Medications Acetylcysteine (Acetylcysteine 20%) 4 ml INH RQ6 [facility] Last Admin: 11/07/17 13:22 Dose: 4 ml Albuterol/Ipratropium (Duoneb 3 Mg/0.5 Mg (3 Ml) Ud) 3 ml INH RQ6 [facility] Last Admin: 11/07/17 13:22 Dose: 3 ml Famotidine (Pepcid) 20 mg PO DAILY [facility] Last Admin: 11/07/17 09:25 Dose: 20 mg Gabapentin (Neurontin) 100 mg PO BID [facility] Last Admin: 11/07/17 17:41 Dose: 100 mg Guaifenesin (Mucinex [place]) 600 mg PO Q12 [facility] Last Admin: 11/07/17 09:26 Dose: 600 mg Piperacillin Sod/Tazobactam Sod (Zosyn 3.375 Gm Iv Premix) 3.375 gm in 50 mls @ 100 mls/hr IVPB Q6H [facility]; Protocol Last Admin: 11/07/17 17:55 Dose: 100 mls/hr Promethazine HCl/Codeine (Phenergan/Codeine Oral Syrup) 5 ml PO Q6H PRN PRN Reason: Cough Last Admin: 11/07/17 17:41 Dose: 5 ml Saccharomyces Boulardii (Florastor) 250 mg PO BID [facility] Last Admin: 11/07/17 17:41 Dose: 250 mg - Labs Labs: 11/07/17 07:04 11/07/17 07:04
--- NOTE | 2017-11-07 21:14 | CP.PCM.CON ---
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 The patient does note to frequent colds which she says take a long time to resolve. She denies prior hospitlaiz ations for infection. She notes to feeling better on antibiotics. Review of her blood work shows low IgG, IgA, and IgE levels. Past medical history: None Past surgical history: Cosmetic gluteal injections Family history: Denies hematologic and oncologic problems Social history: Denies tobacco, alcohol, and illicit drug use. Allergies: NKA Review of systems: All remaining review of systems including HEENT, cardiovascular, respiratory, gastrointestinal, genitourinary, musculoskeletal, dermatologic, neurologic, and psychiatric are negative unless mentioned in the HPI. Past Patient History - Past Medical History & Family History Past Medical History?: Yes - Past Social History Smoking Status: Never Smoked - CARDIAC Hx Cardiac Disorders: No - PULMONARY Hx Respiratory Disorders: Yes Hx Asthma: Yes - NEUROLOGICAL Hx Neurological Disorder: No - HEENT Hx HEENT Problems: No - RENAL Hx Chronic Kidney Disease: No - ENDOCRINE/METABOLIC Hx Endocrine Disorders: No - HEMATOLOGICAL/ONCOLOGICAL Hx Blood Disorders: No - INTEGUMENTARY Hx Dermatological Problems: No - MUSCULOSKELETAL/RHEUMATOLOGICAL Hx Musculoskeletal Disorders: No Hx Falls: No - GASTROINTESTINAL Hx Gastrointestinal Disorders: No - GENITOURINARY/GYNECOLOGICAL Hx Genitourinary Disorders: No - PSYCHIATRIC Hx Psychophysiologic Disorder: No Hx Substance Use: No - SURGICAL HISTORY Hx Surgeries: No - ANESTHESIA Hx Anesthesia: No Hx Anesthesia Reactions: No Hx Malignant Hyperthermia: No Has any member of the family had a problem w/ anesthesia?: No Meds Allergies/Adverse Reactions: Allergies Allergy/AdvReac Type Severity Reaction Status Date / Time No Known Allergies Allergy Verified 10/29/17 13:18 - Medications Medications: Current Medications Acetylcysteine (Acetylcysteine 20%) 4 ml INH RQ6 [facility] Last Admin: 11/07/17 20:42 Dose: 4 ml Albuterol/Ipratropium (Duoneb 3 Mg/0.5 Mg (3 Ml) Ud) 3 ml INH RQ6 [facility] Last Admin: 11/07/17 20:42 Dose: 3 ml Famotidine (Pepcid) 20 mg PO DAILY [facility] Last Admin: 11/07/17 09:25 Dose: 20 mg Gabapentin (Neurontin) 100 mg PO BID [facility] Last Admin: 11/07/17 17:41 Dose: 100 mg Guaifenesin (Mucinex [place]) 600 mg PO Q12 [facility] Last Admin: 11/07/17 09:26 Dose: 600 mg Piperacillin Sod/Tazobactam Sod (Zosyn 3.375 Gm Iv Premix) 3.375 gm in 50 mls @ 100 mls/hr IVPB Q6H [facility]; Protocol Last Admin: 11/07/17 17:55 Dose: 100 mls/hr Promethazine HCl/Codeine (Phenergan/Codeine Oral Syrup) 5 ml PO Q6H PRN PRN Reason: Cough Last Admin: 11/07/17 17:41 Dose: 5 ml Saccharomyces Boulardii (Florastor) 250 mg PO BID [facility] Last Admin: 11/07/17 17:41 Dose: 250 mg Physical Exam - Head Exam Head Exam: ATRAUMATIC - Eye Exam Eye Exam: Normal appearance - ENT Exam ENT Exam: Mucous Membranes Dry - Respiratory Exam Respiratory Exam: NORMAL BREATHING PATTERN - Cardiovascular Exam Cardiovascular Exam: +S1, +S2 - GI/Abdominal Exam GI & Abdominal Exam: Normal Bowel Sounds - Extremities Exam Extremities exam: Positive for: normal inspection Results - Vital Signs Recent Vital Signs: Last Vital Signs Temp 98.4 F 11/07/17 15:00 Pulse 93 H 11/07/17 15:00 Resp 20 11/07/17 15:00 BP 96/56 L 11/07/17 15:00 Pulse Ox 98 11/07/17 15:00 - Labs Result Diagrams: 11/08/17 07:47 11/08/17 07:47 Labs: Laboratory Results - last 24 hr 11/07/17 11/07/17 07:04 07:04 WBC 4.5 L RBC 4.08 Hgb 10.0 L Hct 30.8 L MCV 75.3 L MCH 24.4 L MCHC 32.4 L RDW 18.7 H Plt Count 179 MPV 7.6 Neut % (Auto) 68.6 Lymph % (Auto) 21.7 [place] % (Auto) 5.1 Eos % (Auto) 3.8 Baso % (Auto) 0.8 Neut # (Auto) 3.1 Lymph # (Auto) 1.0 [place] # (Auto) 0.2 Eos # (Auto) 0.2 Baso # (Auto) 0.0 Sodium 142 Potassium 3.9 Chloride 105 Carbon Dioxide 22 Anion Gap 19 BUN 13 Creatinine 0.9 Est GFR ( Amer) > 60 Est GFR (Non-Af Amer) > 60 Random Glucose 112 H Calcium 8.8 Phosphorus 3.7 Magnesium 2.4 H Total Bilirubin 0.4 AST 21 ALT 37 Alkaline Phosphatase 131 H Total Protein 6.2 L Albumin 3.6 Globulin 2.7 Albumin/Globulin Ratio 1.3 Assessment & Plan (1) Immunoglobulin deficiency Assessment and Plan: IgG, IgA, IgE deficiency ?common variable immunodeficiency if pneumonia not felt to be resolving, would recommend IVIG 25 grams IV x 1 with benadryl and tylenol premedication this may be need to be redosed as outpatient q4 weeks Status: Acute (2) Anemia Assessment and Plan: will check retic count, b12, folate, ferritin to further characterize Thank you for this interesting consult. Status: Acute
[2017-11-08] MEDS: Piperacill/Tazo 3.375gm in Dex 3.375 GM/50 ML BAG IVPB SCH ×4 (00:07→17:37)
[2017-11-08] MEDS: Acetylcysteine 20% Inhal Soln (4ml) INH SCH ×4 (01:58→19:17)
[2017-11-08] MEDS: Albuterol-Ipratrop 3 mg / 0.5 (3 ml) UD INH SCH ×4 (01:59→19:17)
[2017-11-08 08:01] LABS: INR 1.3; PROTHROMBIN TIME 13.7 SECONDS (9.7-12.2)
[2017-11-08 08:05] LABS: BASO % 0.8 % (0.0-2.0); EOS # 0.2 K/uL (0.0-0.7); EOS % 3.9 % (0.0-4.0); HEMOGLOBIN 10.3 g/dL (11.0-16.0); LYMPH % 20.3 % (20.0-40.0); MEAN CELL VOLUME 75.2 fL (81.0-99.0); MEAN CORPUSCULAR HEMOGLOBIN 24.6 pg (27.0-31.0); MEAN CORPUSCULAR HGB CONC 32.7 g/dL (33.0-37.0); MEAN PLATELET VOLUME 7.3 fL (7.2-11.7); MONO # 0.3 K/uL (0.0-0.8); MONO % 6.5 % (0.0-10.0); NEUT # 3.3 K/uL (1.8-7.0); NEUT % 68.5 % (50.0-75.0); RBC 4.18 Mil/uL (3.80-5.20); RED CELL DISTRIBUTION WIDTH 19.4 % (11.5-14.5); WHITE BLOOD COUNT 4.8 K/uL (4.8-10.8)
[2017-11-08 08:43] LABS: ALB/GLOB RATIO 1.4 (1.0-2.1); ALBUMIN 3.7 g/dL (3.5-5.0); ALT/SGPT 39 U/L (9-52); AST/SGOT 34 U/L (14-36); BLOOD UREA NITROGEN 17 mg/dL (7-17); CALCIUM 8.9 mg/dl (8.6-10.4); GFR NON-AFRICAN AMERICAN > 60
[2017-11-08] MEDS: guaiFENesin 600 mg ER Tab PO SCH (09:05)
[2017-11-08] MEDS: Saccharomyces Boulardi 250 mg Cap PO SCH ×2 (09:06→17:37)
[2017-11-08] MEDS ORDERED: Lidocaine 4% (Laryng-O-Jet) Kit MM ONE (09:29)
[2017-11-08] MEDS ORDERED: Propofol 10 mg/ml Inj (20 ML) ONE ×2 (09:45→10:22)
[2017-11-08] MEDS ORDERED: Albuterol HFA 90 mcg/actuation (8 g) ONE (10:13)
[2017-11-08] MEDS ORDERED: Albuterol 0.083% Inhal Sol (2.5 mg/3 mL) UD ONE (10:13)
[2017-11-08 15:20] VITALS: BP 100/64; PULSE 86; TEMP 97.6
[2017-11-08 17:49] VITALS: O2SAT 100
--- NOTE | 2017-11-08 21:23 | CP.PCM.PN ---
Subjective - Date & Time of Evaluation Date of Evaluation: 11/08/17 Time of Evaluation: 13:15 - Subjective Subjective: Patient s/p SHAH[facility]Z No endocarditis Normal EF Full report to follow Objective - Vital Signs/Intake and Output Vital Signs (last 24 hours): Temp Pulse Resp BP Pulse Ox 97.6 F 86 20 100/64 100 11/08/17 15:00 11/08/17 15:00 11/08/17 15:00 11/08/17 15:00 11/08/17 17:56 Intake and Output: 11/08/17 11/09/17 18:59 06:59 Intake Total 350 Balance 350 - Labs Labs: 11/08/17 07:47 11/08/17 07:47 PT 13.7 SECONDS (9.7-12.2) H 11/08/17 07:47 INR 1.3 11/08/17 07:47
--- NOTE | 2017-11-08 21:48 | CP.PCM.DIS ---
Provider - Provider Date of Admission: 10/29/17 14:42 Attending physician: Krystyna Gaona MD Time Spent in preparation of Discharge (in minutes): 45 Hospital Course - Lab Results Lab Results: Micro Results 11/04/17 14:00 Blood-Venous Blood Culture - Preliminary NO GROWTH AFTER 4 DAYS 11/04/17 13:30 Blood-Venous Blood Culture - Preliminary NO GROWTH AFTER 4 DAYS 10/29/17 12:07 Other: Please Indicate Mycobacterial Culture - Preliminary 11/03/17 17:04 Other: Please Indicate Mycobacterial Culture - Preliminary 11/02/17 13:11 Other: Please Indicate Mycobacterial Culture - Preliminary 11/01/17 15:17 Other: Please Indicate Mycobacterial Culture - Preliminary 10/29/17 13:50 Blood Blood Culture - Final NO GROWTH AFTER 5 DAYS 10/29/17 13:50 Blood Gram Stain - Final TEST NOT PERFORMED 10/29/17 13:50 Blood S.aureus & Coag-Neg Staph PNA FISH - Final 10/29/17 13:50 Blood Blood Culture - Final Streptococcus Pneumoniae 10/29/17 13:50 Blood Gram Stain - Final 10/29/17 15:57 Sputum Gram Stain - Final 10/29/17 15:57 Sputum Sputum Culture - Final NORMAL ORAL ARTURO 10/29/17 13:20 Urine Urine Culture - Final No Growth (<1,000 CFU/ML) Most Recent Lab Values WBC 4.8 K/uL (4.8-10.8) 11/08/17 07:47 RBC 4.18 Mil/uL (3.80-5.20) 11/08/17 07:47 Hgb 10.3 g/dL (11.0-16.0) L 11/08/17 07:47 Hct 31.4 % (34.0-47.0) L 11/08/17 07:47 MCV 75.2 fL (81.0-99.0) L 11/08/17 07:47 MCH 24.6 pg (27.0-31.0) L 11/08/17 07:47 MCHC 32.7 g/dL (33.0-37.0) L 11/08/17 07:47 RDW 19.4 % (11.5-14.5) H 11/08/17 07:47 Plt Count 182 K/uL (130-400) 11/08/17 07:47 MPV 7.3 fL (7.2-11.7) 11/08/17 07:47 Neut % (Auto) 68.5 % (50.0-75.0) 11/08/17 07:47 Lymph % (Auto) 20.3 % (20.0-40.0) 11/08/17 07:47 [place] % (Auto) 6.5 % (0.0-10.0) 11/08/17 07:47 Eos % (Auto) 3.9 % (0.0-4.0) 11/08/17 07:47 Baso % (Auto) 0.8 % (0.0-2.0) 11/08/17 07:47 Neut # (Auto) 3.3 K/uL (1.8-7.0) 11/08/17 07:47 Lymph # (Auto) 1.0 K/uL (1.0-4.3) 11/08/17 07:47 [place] # (Auto) 0.3 K/uL (0.0-0.8) 11/08/17 07:47 Eos # (Auto) 0.2 K/uL (0.0-0.7) 11/08/17 07:47 Baso # (Auto) 0.0 K/uL (0.0-0.2) 11/08/17 07:47 Neutrophils % (Manual) 82 % (50-75) H 10/29/17 13:04 Band Neutrophils % 4 % (0-2) H 10/29/17 13:04 Lymphocytes % (Manual) 9 % (20-40) L 10/29/17 13:04 Monocytes % (Manual) 5 % (0-10) 10/29/17 13:04 Toxic Granulation Present 10/29/17 13:04 Platelet Estimate Normal (NORMAL) 10/29/17 13:04 Polychromasia Slight 10/29/17 13:04 Hypochromasia (manual) Slight 10/29/17 13:04 Anisocytosis (manual) Moderate 10/29/17 13:04 Microcytosis (manual) Slight 10/29/17 13:04 ESR 75 mm/hr (0-20) H 11/05/17 08:33 PT 13.7 SECONDS (9.7-12.2) H 11/08/17 07:47 INR 1.3 10/02/18 07:47 pO2 23 mm/Hg (30-55) L 10/29/17 13:20 VBG pH 7.43 (7.32-7.43) 10/29/17 13:20 VBG pCO2 29 mmHg (40-60) L 10/29/17 13:20 VBG HCO3 20.4 mmol/L 10/29/17 13:20 VBG Total CO2 20.1 mmol/L (22-28) L 10/29/17 13:20 VBG O2 Sat (Calc) 44.8 % (40-65) 10/29/17 13:20 VBG Base Excess -3.9 mmol/L (0.0-2.0) L 10/29/17 13:20 VBG Potassium 3.5 mmol/L (3.6-5.2) L 10/29/17 13:20 Sodium 134.0 mmol/l (132-148) 10/29/17 13:20 Chloride 103.0 mmol/L (98-107) 10/29/17 13:20 Glucose 106 mg/dl (65-105) H 10/29/17 13:20 Lactate 0.9 mmol/L (0.7-2.1) 10/29/17 13:20 FiO2 21.0 % 10/29/17 13:20 Sodium 140 mmol/L (132-148) 11/08/17 07:47 Potassium 4.0 mmol/L (3.6-5.2) 11/08/17 07:47 Chloride 104 mmol/L (98-107) 11/08/17 07:47 Carbon Dioxide 24 mmol/L (22-30) 11/08/17 07:47 Anion Gap 16 (10-20) 11/08/17 07:47 BUN 17 mg/dL (7-17) 11/08/17 07:47 Creatinine 0.8 mg/dL (0.7-1.2) 11/08/17 07:47 Est GFR ( Amer) > 60 11/08/17 07:47 Est GFR (Non-Af Amer) > 60 11/08/17 07:47 Random Glucose 97 mg/dL (65-105) 11/08/17 07:47 Calcium 8.9 mg/dl (8.6-10.4) 11/08/17 07:47 Phosphorus 3.9 mg/dL (2.5-4.5) 11/08/17 07:47 Magnesium 2.2 mg/dL (1.6-2.3) 11/08/17 07:47 Iron 23 ug/dL (37-170) L 10/31/17 14:29 TIBC 284 ug/dL (250-450) 10/31/17 14:29 % Saturation 8 (20-55) L 10/31/17 14:29 Ferritin 323.0 ng/mL 10/31/17 14:06 Total Bilirubin 0.4 mg/dL (0.2-1.3) 11/08/17 07:47 AST 34 U/L (14-36) 11/08/17 07:47 ALT 39 U/L (9-52) 11/08/17 07:47 Alkaline Phosphatase 134 U/L (38-126) H 11/08/17 07:47 Lactate Dehydrogenase 327 U/L (313-618) 10/30/17 19:45 C-Reactive Protein 38.50 mg/L (0.0-9.9) H 11/05/17 08:33 C-React Prot High Sens > 15.00 mg/L (1.00-3.00) H 11/01/17 20:23 Total Protein 6.3 g/dL (6.3-8.3) 11/08/17 07:47 Albumin 3.7 g/dL (3.5-5.0) 11/08/17 07:47 Globulin 2.6 gm/dL (2.2-3.9) 11/08/17 07:47 Albumin/Globulin Ratio 1.4 (1.0-2.1) 11/08/17 07:47 Venous Blood Potassium 3.5 mmol/L (3.6-5.2) L 10/29/17 13:20 Urine Color Fabiola (YELLOW) 10/29/17 13:20 Urine Clarity Hazy (Clear) 10/29/17 13:20 Urine pH 5.0 (5.0-8.0) 10/29/17 13:20 Ur Specific [place] 1.024 (1.003-1.030) 10/29/17 13:20 Urine Protein 2+ mg/dL (NEGATIVE) H 10/29/17 13:20 Urine Glucose (UA) Normal mg/dL (Normal) 10/29/17 13:20 Urine Ketones 1+ mg/dL (NEGATIVE) H 10/29/17 13:20 Urine Blood 1+ (NEGATIVE) H 10/29/17 13:20 Urine Nitrate Negative (NEGATIVE) 10/29/17 13:20 Urine Bilirubin Negative (NEGATIVE) 10/29/17 13:20 Urine Urobilinogen 4.0 mg/dL (0.2-1.0) H 10/29/17 13:20 Ur Leukocyte Esterase Neg Pooja/uL (Negative) 10/29/17 13:20 Urine WBC (Auto) 2 /hpf (0-5) 10/29/17 13:20 Urine RBC (Auto) 13 /hpf (0-3) H 10/29/17 13:20 Ur Squamous Epith Cells < 1 /hpf (0-5) 10/29/17 13:20 Urine HCG, Qual Negative (NEGATIVE) 11/08/17 09:05 Stool Occult Blood Negative (NEGATIVE) 11/01/17 20:23 Vancomycin Trough 9.2 ug/mL (5.0-10.0) 11/02/17 03:30 IgG 403.5 mg/dL (700.0-1600.0) L 11/01/17 20:23 IgA < 40.0 mg/dL (70.0-400.0) L 11/01/17 20:23 IgM 72.4 mg/dL (40.0-230.0) 11/01/17 20:23 IgE <2 kU/L (<gv=393) 11/01/17 20:23 C. pneumoniae IgG Ab <1:64 (<1:64) 10/29/17 15:15 C. pneumoniae IgA Ab <1:16 (<1:16) 10/29/17 15:15 C. pneumoniae IgM Ab <1:10 (<1:10) 10/29/17 15:15 C. pneumoniae Ab Interp see note 10/29/17 15:15 C. trachomatis IgG Ab <1:64 (<1:64) 10/29/17 15:15 C. trachomatis IgA Ab <1:16 (<1:16) 10/29/17 15:15 C. trachomatis IgM Ab <1:10 (<1:10) 10/29/17 15:15 C.trachomatis Ab Interp see note 10/29/17 15:15 C. psittaci IgG Ab <1:64 (<1:64) 10/29/17 15:15 C. psittaci IgA Ab <1:16 (<1:16) 10/29/17 15:15 C. psittaci IgM Ab <1:10 (<1:10) 10/29/17 15:15 C. psittaci Ab Interp see note 10/29/17 15:15 HIV 1&2 Antibody Screen Negative (NEGATIVE) 10/31/17 14:06 Mycoplasma pneumon IgG <=0.90 (<=0.90) 10/29/17 15:15 Mycoplasma pneumon IgM 53 U/mL (<770) 10/29/17 15:15 TB Test (QFT) Nil 0.23 IU/mL 10/31/17 14:06 TB Test Mitogen - Nil 7.19 IU/mL 10/31/17 14:06 TB Test TB - Nil 0.08 IU/mL 10/31/17 14:06 TB Test (QFT) Negative (Negative) 10/31/17 14:06 - Hospital Course Hospital Course: Chief complaint: Worsening cough HPI: 36-year-old female with a history of recurrent ear infection, and a chronic cough came to the office a week ago, at the time patient was complaining of cough. Patient did not have any fever in the beginning, but she was having wheezing upon examination in my office on 09/27/2017. During that examination I advised the patient for Keflex, Ciprodex, and also inhaled corticosteroids. But over the one week, she did not have any improvement. She came to my office. And I advised her to have x-ray of the chest, which was showing worsening infiltrative changes in the right upper lung, and I advised the patient to go to the emergency room immediately. In the ER patient having worsening cough, cough associated with a thick yellow mucus, also having some blood in the mucus noted. Patient was also having fever and chills. She was having poor appetite, and also some weight loss noted. She did not have any headache. No nausea noted. No vomiting noted. No diarrhea. No skin rash Past medical history none except ear infection Surgical history aesthetic surgery, both gluteal area fillers Family history father mother healthy, siblings 2 brothers Social history: Occasional alcohol denies smoking drinks coffee no exercise current medications none Review of system: doing well, no sinusitis, no headache.Left ear discharge and pain noted. Complaining of minimal soreness of throat. Cough and wheezing noted, chest tightness occasionally noted.Denies any shortness of breath. All exertional dyspnea exertional shortness of breath On examination: Vital signs stable. Patient has a vaccine that idea Left ear discharge noted, pus discharge noted. Lungs bilateral wheezing noted.Expiratory wheezing noted Regular heart sound.No eczema Patient had x-ray of the chest, also CAT scan of the chest showing evidence of right upper lung infiltration, with the air bronchogram. Mild hilar debora enlargement noted Assessment: Patient is a 36-year-old female with a history of recurrent ear infection, now admitted with the severe worsening cough, fever, chills. Evidence of acute pneumonia, most likely community-acquired. Right upper lung pneumonia, underlying tuberculosis cannot be ruled out Also possible sepsis. I spoke to the patient as well as patient's family. She needs intravenous antibiotic, to cover possibly of gram-positive cocci, will add vancomycin, also Zosyn. DVT and GI prophylaxis. Evaluation for tuberculosis. Airborne isolation. Family and the patient understands. Further workup as needed. And will follow-up the patient Course in the Hospital: Patient was hospitalized. She was also isolated for airborne isolation for AFB. Patient had x-ray showing evidence of right upper lung pneumonia. Started on intravenous antibiotic including vancomycin, Zosyn. Initial tuberculosis culture were negative. Sputum culture showing evidence of Streptococcus pneumoniae. Infectious disease evaluation was called in. Patient underwent extensive workup. Patient had a in the past a history of arthritis media Immunoglobulin electrophoresis showing evidence of significant deficiency of IgA level noted. Also low IgG level noted. 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 But most likely IgA subtype. Infectious disease evaluation, hematology evaluation called in. After multiple discussions it was decided to continue the antibiotic. Patient may not respond to intravenous immunoglobulin. Currently she is responding with antibiotic. Repeat chest x-ray yesterday showing evidence of improvement in the, pneumonia noted. Recommended to repeat the x-ray in the future. I also spoke to the infectious disease. She will continue the antibiotic for 2 more weeks. Cough medication as needed. Prescription was given to the patient in detail. Pneumococcal vaccine was given now. Patient will follow up as an outpatient. Patient also had transesophageal echocardiogram today, negative for any vegetation. Clinical stable. Discharge home today. Final diagnoses immunodeficiency congenital, IgG SSEP type deficiency. Streptococcus pneumonia. Recurrent arthritis media, sinusitis in the past. Will follow-up the patient Discharge Exam - Head Exam Head Exam: ATRAUMATIC Discharge Plan - Discharge Medications Prescriptions: Cefprozil 500 mg PO BID #24 tablet Promethazine [Phenergan Syrup] 6.25 mg PO Q6 PRN #200 cup PRN Reason: Cough - Follow Up Plan Condition: STABLE Disposition: HOME/ ROUTINE Instructions: Pneumonia, Adult (DC) Additional Instructions: Follow up in two weeks. Referrals: Krystyna Gaona MD [Staff Provider] -
--- NOTE | 2017-11-13 08:29 | CARD ---
APPROVED REPORT Date of service: 11/08/2017 EXAM: Transesophageal echocardiogram with color flow Doppler. INDICATION R/O Endocarditis Mitral Valve E/A ratio0.0 TDI E/Lateral E'0.0E/Medial E'0.0 Reason For Test : Rule out endocarditis. PROCEDURE After obtaining informed consent, patient underwent transesophageal echo in the [facility] [employer]. Type of Sedation : Conscious Sedation Sedation was provided by anesthesiologist. Sedation was achieved with intravenously. The SHAHBAZ was performed complications. Throughout the procedure, the blood pressure, pulse oximetry, cardiac rhythm, and rate were monitored. The patient tolerated the procedure without adverse effects. Recovery from conscious sedation was uneventful and vital signs were stable. LEFT VENTRICLE The left ventricle is normal size. The left ventricular function is normal. The left ventricular ejection fraction is within the normal range. There is normal LV segmental wall motion. The left ventricular diastolic function is normal. No left ventricle thrombus noted on this study. There is no ventricular septal defect visualized. RIGHT VENTRICLE The right ventricle is normal size. The right ventricular systolic function is normal. ATRIA The left atrium size is normal. The right atrium size is normal. The interatrial septum is intact with no evidence for an atrial septal defect. AORTIC VALVE The aortic valve is normal in structure. No aortic regurgitation is present. There is no aortic valvular stenosis. There is no aortic valvular vegetation. MITRAL VALVE The mitral valve is normal in structure. There is no evidence of mitral valve prolapse. There is no mitral valve stenosis. Mitral regurgitation is trace. TRICUSPID VALVE The tricuspid valve is normal in structure. There is mild tricuspid regurgitation. There is no tricuspid valve prolapse or vegetation. There is no tricuspid valve stenosis. PULMONIC VALVE The pulmonary valve is normal in structure. There is no pulmonic valvular regurgitation. There is no pulmonic valvular stenosis. GREAT VESSELS The aortic root is normal in size. <Conclusion> The left ventricular function is normal. The left ventricular ejection fraction is within the normal range. The aortic valve is normal in structure. The mitral valve is normal in structure. The tricuspid valve is normal in structure. There is mild tricuspid regurgitation. The pulmonary valve is normal in structure. The aortic root is normal in size.
== END 2017-11-08 20:50 | disposition home or self-care (01) | DRG 720 ==
LOC: C.ER 12:14 → C.9E 14:42 → C.5S 16:01
PROVIDERS: ADMIT Internal Medicine; ATTEND Internal Medicine
PROC: B246ZZ4 Ultrasonography of Right and Left Heart, Transesophageal (ICD-10-PCS; principal; 2017-11-08)
DX: A40.3 Sepsis due to Streptococcus pneumoniae (principal); J13 Pneumonia due to Streptococcus pneumoniae; D80.1 Nonfamilial hypogammaglobulinemia; R04.2 Hemoptysis; D80.2 Selective deficiency of immunoglobulin A [IgA]; D64.9 Anemia, unspecified; J45.909 Unspecified asthma, uncomplicated; H66.92 Otitis media, unspecified, left ear; Z23 Encounter for immunization

== ENCOUNTER 2018-03-28 09:13 | Outpatient (CLI) | payer OTHER | END 2018-03-28 09:14 | disposition home or self-care (01) | LOC: C.LAB 09:13 ==

== ENCOUNTER 2018-04-14 14:56 | Outpatient (CLI) | payer OTHER | END 2018-04-14 14:57 | disposition home or self-care (01) | LOC: C.CTH 14:56 ==